=== PATIENT | female | born 1940 | race African-American/Black ===

== ENCOUNTER → 2017-01-23 | Outpatient (CLI) | payer MEDICARE, OTHER ==
[2016-12-10 15:27] VITALS: BP 148/61
[~2017-01-23] MED LIST: AMLO10TA2 PO; ASPI-482 PO; CALC500T27 PO; CARB200T PO; CHOL10003 PO; CHOL20004 PO; CHOL400C PO; CLON0.1T PO; CRESTOR40 MG PO; ENAL20TA PO; FERR-26 PO; FURO-69 PO; HYDR-2666 PO; IBAN150T PO; METO25TA4 PO; METO25TA9 PO; SPIR25TA3 PO
--- NOTE | 2017-01-23 14:50 | RAD ---
DATE: 01/23/2017 EXAM: DIGITAL SCREEN BILAT W/CAD HISTORY: Routine screening COMPARISON: 01/24/2016 This study was interpreted with the benefit of Computerized Aided Detection (CAD). FINDINGS: The breast parenchyma demonstrates heterogeneously dense breast tissue, category C which can obscure small masses. There is a linear hyperdensity identified in the left outer posterior breast which is probably a small residual wire. Benign-appearing calcific lesions identified in the left breast. There is a small asymmetry identified in the left inner lower breast. IMPRESSION: 1. There is a linear hyperdensity identified in the left outer posterior breast which is probably a small residual wire. Correlate clinically. 2. Small asymmetry identified in the left lower inner breast. Recommend spot compression views of the left inner lower breast. BI-RADS CATEGORY: 0 INCOMPLETE: NEEDS ADDITIONAL IMAGING EVALUATION AND/OR PRIOR MAMMOGRAMS FOR COMPARISON. RECOMMENDED FOLLOW-UP: ADD ADDITIONAL IMAGING PQRS compliance statement: Patient information was entered into a reminder system with a target due date immediate recall: for the next mammogram. Mammography is a sensitive method for finding small breast cancers, but it does not detect them all and is not a substitute for careful clinical examination. A negative mammogram does not negate a clinically suspicious finding and should not result in delay in biopsying a clinically suspicious abnormality. "Our facility is accredited by the [employer] Mammography Program."
== END | disposition home or self-care (01) ==
LOC: MAMMO 11:46
PROVIDERS: ATTEND Internal Medicine
DX: Z12.31 Encounter for screening mammogram for malignant neoplasm of breast (principal)
CPT/HCPCS: G0202; 77067

== ENCOUNTER → 2017-02-03 | Outpatient (CLI) | payer MEDICARE, OTHER ==
[2016-12-10 15:27] VITALS: BP 148/61
--- NOTE | 2017-02-03 10:56 | RAD ---
DATE: 02/03/2017 EXAM: DIGITAL DIAGNOSTIC LT HISTORY: Suspicious screening study COMPARISON: 01/23/2017, 01/24/2016 01/30/2015 This study was interpreted with the benefit of Computerized Aided Detection (CAD). FINDINGS: Spot compression views of the area of suspicion described on the screening mammograms in the lower inner quadrant were performed. No discrete nodule is identified. There are fibroglandular shadows in this region similar to those seen on the previous studies. The appearance on the screening study appears to have represented a summation artifact. IMPRESSION: Stable left mammograms without evidence of malignancy. BI-RADS CATEGORY: 2 BENIGN FINDING(S) RECOMMENDED FOLLOW-UP: 12M 12 MONTH FOLLOW-UP PQRS compliance statement: Patient information was entered into a reminder system with a target due date for the next mammogram. Mammography is a sensitive method for finding small breast cancers, but it does not detect them all and is not a substitute for careful clinical examination. A negative mammogram does not negate a clinically suspicious finding and should not result in delay in biopsying a clinically suspicious abnormality. "Our facility is accredited by the [employer] Mammography [employer]."
== END | disposition home or self-care (01) ==
LOC: MAMMO 10:16
PROVIDERS: ATTEND Internal Medicine
DX: R92.8 Other abnormal and inconclusive findings on diagnostic imaging of breast (principal)
CPT/HCPCS: G0206; 77065

== ENCOUNTER → 2017-02-27 | Outpatient (CLI) | payer MEDICARE, OTHER ==
[2016-12-10 15:27] VITALS: BP 148/61
[~2017-02-27] MED LIST changes: +GADOBUTROL 7.5 MMOL/7.5 ML VIAL IV ONE
--- NOTE | 2017-02-27 17:09 | KCIC ---
PROCEDURE MRI study of the abdomen with and without contrast HISTORY Follow up of pancreatic cystic lesion. TECHNIQUE Pre and post contrast enhanced MRI sequences of the abdomen were performed. A total of 5 cc of Gadavist was given intravenously. COMPARISON Study performed at [facility] dated December 09, 2016. FINDINGS Again seen are multiple renal cysts and hepatic cysts which have not changed significantly. Again seen is a cyst of the of the pancreas measuring 15 millimeters in size. This has not increased in size. The rest of the pancreas is unremarkable. The spleen is not enlarged. No adrenal mass is evident. No focal aneurysmal dilatation of the abdominal aorta is seen. Gallbladder is normal and no extrahepatic biliary ductal dilatation is seen. IMPRESSION Stable cyst of the head of the pancreas since December 09, 2016. Recommend continued MRI follow up in 6-9 months. Electronically signed by: Steven Schneider MD (Feb 27, 2017 17:07:28)
== END | disposition home or self-care (01) ==
LOC: KCIC MRI 12:00
PROVIDERS: ATTEND Internal Medicine
DX: K86.2 Cyst of pancreas (principal)
CPT/HCPCS: 74183; A9585

== ENCOUNTER → 2017-04-08 | Outpatient (CLI) | payer MEDICARE, OTHER ==
[2016-12-10 15:27] VITALS: BP 148/61
[~2017-04-08] MED LIST changes: -GADOBUTROL 7.5 MMOL/7.5 ML VIAL IV ONE
--- NOTE | 2017-04-08 14:35 | CARD ---
APPROVED REPORT EXAM: Two-dimensional and M-mode echocardiogram with Doppler and color Doppler. Other Information Quality : Good INDICATION Hypertension/HCVD Syncope 2D DIMENSIONS RVDd2.4 (2.9-3.5cm)Left Atrium(2D)2.6 (1.6-4.0cm) IVSd1.2 (0.7-1.1cm)Aortic Root(2D)2.3 (2.0-3.7cm) LVDd3.0 (3.9-5.9cm)LVOT Diameter1.8 (1.8-2.4cm) PWd1.4 (0.7-1.1cm)LVDs2.0 (2.5-4.0cm) FS (%) 27.5 %SV5.0 ml LVEF(%)55.0 (>50%) Aortic Valve AoV Peak Devin.151.6cm/sAoV VTI30.1cm AO Peak GR.9.2mmHgLVOT Peak Devin.136.9cm/s LVOT VTI 31.57cmAO Mean GR.5mmHg NATNA (VMAX)2.31kw5HPW (VTI)2.75cm2 Mitral Valve MV E Gzrtuifs66.3cm/sMV DECEL DASC578cp MV A Gfmjxzrm883.5cm/sMV [id number] E/A Ratio0.6MVA (PHT)1.79cm2 TDI E/Lateral E'9.0E/Medial E'9.3 Tricuspid Valve TR P. Wattubzj499fw/sRAP GHOQBXIY1ofVr TR Peak Gr.32ewYaNWJA46gvGu Pulmonary Vein S1 Tdabhwwa77.1cm/sD2 Yjvplggu83.2cm/s PVa [id number] LEFT VENTRICLE The left ventricle is normal size. There is mild to moderate concentric left ventricular hypertrophy. The left ventricular systolic function is normal and the ejection fraction is within normal range. T he Ejection Fraction is 55-60%. There is normal LV segmental wall motion. Septal motion suggestive of conduction defect. Transmitral Doppler flow pattern is Grade I-abnormal relaxation pattern. RIGHT VENTRICLE The right ventricle is normal size. The right ventricular systolic function is normal. ATRIA The left atrium size is normal. The right atrium size is normal. The interatrial septum is intact wit h no evidence for an atrial septal defect or patent foramen ovale as noted on 2-D or Doppler imaging. AORTIC VALVE The aortic valve is calcified but opens well. Doppler and Color Flow revealed no significant aortic r egurgitation. There is no significant aortic valvular stenosis. MITRAL VALVE The mitral valve is thickened but opens well. Mitral annular calcification is mild. There is no evide nce of mitral valve prolapse. There is no mitral valve stenosis. Doppler and Color-flow revealed mild mitral regurgitation. TRICUSPID VALVE The tricuspid valve is normal in structure and function. Doppler and Color Flow revealed trace to mil d tricuspid regurgitation. The PA pressure was estimated at 34 mmHg. There is no tricuspid valve sten osis. PULMONIC VALVE Doppler and Color Flow revealed mild pulmonic valvular regurgitation. There is no pulmonic valvular s tenosis. GREAT VESSELS The aortic root is normal in size. The ascending aorta is normal in size. The IVC is normal in size a nd collapses >50% with inspiration. PERICARDIAL EFFUSION There is no evidence of significant pericardial effusion. Critical Notification Critical Value: No <Conclusion> The left ventricular systolic function is normal and the ejection fraction is within normal range. Th e Ejection Fraction is 55-60%. There is normal LV segmental wall motion. Septal motion suggestive of conduction defect. Doppler and Color-flow revealed mild mitral regurgitation. Doppler and Color Flow revealed trace to mild tricuspid regurgitation. The PA pressure was estimated at 34 mmHg.
== END | disposition home or self-care (01) ==
LOC: ECHO 10:46
PROVIDERS: ATTEND Internal Medicine Cardiovascular Disease
DX: I11.9 Hypertensive heart disease without heart failure (principal); I37.1 Nonrheumatic pulmonary valve insufficiency; I34.0 Nonrheumatic mitral (valve) insufficiency; I07.1 Rheumatic tricuspid insufficiency
CPT/HCPCS: 93306

== ENCOUNTER → 2017-11-04 | Outpatient (CLI) | payer MEDICARE, OTHER ==
[2016-12-10 15:27] VITALS: BP 148/61
[~2017-11-04] MED LIST changes: -CALC500T27 PO; +CALC500T30 PO; -CHOL20004 PO; +CHOL200074 PO; +GADOBUTROL 7.5 MMOL/7.5 ML VIAL IV ONE; -HYDR-2666 PO; +HYDR-2758 PO; +METO-239 PO; -METO25TA9 PO
--- NOTE | 2017-11-04 15:17 | RAD ---
Abdomen MRI study with and without contrast History: Pancreatic mass. Follow-up study. Comparison: Abdomen MRI study dated February 27, [address] study of the abdomen dated May 05, 2015. Technique: Pre and postcontrast enhanced MRI sequences of the abdomen were performed. A total of 5 cc of Gadavist was given intravenously. Findings: Hepatic cysts are again evident. The spleen is not enlarged. Small bilateral renal cysts are seen. No adrenal mass is evident. No focal aneurysmal dilatation of the abdominal aorta is seen. No enlarged abdominal lymphadenopathy is seen. The gallbladder is normal and no extrahepatic biliary ductal dilatation is seen. Again seen is a cyst of the head of the pancreas which measures 13 mm in size. No new hepatic lesions are seen. IMPRESSION: No increase in size of cyst of the head of the pancreas which now measures 13 mm. No increased in size since May 05, 2015. No internal enhancement. This is a benign finding.
== END | disposition home or self-care (01) ==
LOC: MRI 13:15
PROVIDERS: ATTEND Internal Medicine
DX: K86.9 Disease of pancreas, unspecified (principal); K76.89 Other specified diseases of liver
CPT/HCPCS: 74183; A9585

== ENCOUNTER → 2018-02-05 | Outpatient (CLI) | payer MEDICARE, OTHER | END | disposition home or self-care (01) | LOC: MAMMO 12:41 | DX: Z12.31 Encounter for screening mammogram for malignant neoplasm of breast (principal); Z85.3 Personal history of malignant neoplasm of breast | CPT/HCPCS: 77063; 77067 ==

== ENCOUNTER 2018-04-07 12:07 | Inpatient (IN) | payer MEDICARE, OTHER ==
[2018-04-07 12:49] LABS: ADD MAN DIFF? NO
[2018-04-07 12:54] LABS: BASO # 0.1 x10^3/uL (0.0-0.2); BASO % 1 % (0-3); EOS # 0.3 x10^3/uL (0.0-0.7); EOS % 5 % (0-3); HEMATOCRIT 37.7 % (36.0-47.0); LYMPH # 2.4 x10^3/uL (1.0-4.8); LYMPH % 35 % (24-48); MEAN CORPUSCULAR HEMOGLOBIN 31 pg (25-35); MEAN CORPUSCULAR HGB CONC 35 g/dL (31-37); MEAN CORPUSCULAR VOLUME 91 fL (79-100); MONO # 0.4 x10^3/uL (0.0-1.1); MONO % 6 % (0-9); NEUT # 3.6 x10^3uL (1.8-7.7); NEUT % 53 % (31-73); PLATELET COUNT 297 x10^3/uL (140-400); RED BLOOD COUNT 4.15 x10^6/uL (3.50-5.40); RED CELL DISTRIBUTION WIDTH 15.1 % (11.5-14.5); WHITE BLOOD COUNT 6.8 x10^3/uL (4.0-11.0)
[2018-04-07] MEDS: LABETALOL 20 MG/4 ML DISP.SYRIN. IVP ×2 (13:01→14:55)
[2018-04-07 13:03] LABS: ANION GAP 15 (6-14); BLOOD UREA NITROGEN 11 mg/dL (7-20); CALCIUM 10.4 mg/dL (8.5-10.1); CARBON DIOXIDE 19 mmol/L (21-32); CHLORIDE 109 mmol/L (98-107); CREATININE 1.4 mg/dL (0.6-1.0); GLUCOSE 90 mg/dL (70-99); POTASSIUM 3.8 mmol/L (3.5-5.1); SODIUM 143 mmol/L (136-145)
[2018-04-07 13:04] LABS: BILIRUBIN,URINE NEGATIVE (NEG); CLARITY,URINE CLEAR; COLOR,URINE YELLOW; GLUCOSE,URINE NEGATIVE (NEG); NITRITE,URINE NEGATIVE (NEG); PROTEIN,URINE 100 mg/dL (NEG-TRACE); UROBILINOGEN,URINE 0.2 mg/dL (0.2 mg/dL)
[2018-04-07 13:08] LABS: ALBUMIN 3.9 g/dL (3.4-5.0); ALK PHOS 87 U/L (46-116); ALT (SGPT) 14 U/L (14-59); AST (SGOT) 15 U/L (15-37); DIRECT BILIRUBIN 0.1 mg/dL (0.0-0.2); LIPASE 66 U/L (73-393); TOTAL BILIRUBIN 0.7 mg/dL (0.2-1.0); TOTAL PROTEIN 8.5 g/dL (6.4-8.2)
[2018-04-07 13:11] LABS: TROPONINI < 0.017 ng/mL (0.000-0.055)
[2018-04-07 13:17] LABS: SQUAMOUS EPITHELIAL CELL,UR FEW /LPF
[2018-04-07 13:18] LABS: BACTERIA,URINE FEW /HPF (0-FEW); HYALINE CASTS, URINE FEW /HPF; RBC,URINE OCC /HPF (0-2)
[2018-04-07] MEDS: IV NORMAL SALINE 1000ML BAG 1,000 ML IV (14:49)
[2018-04-07] MEDS ORDERED: ONDANSETRON PF 4 MG/2 ML VIAL. IV (15:00)
[2018-04-07] MEDS: LISINOPRIL 20 MG TABLET PO (15:35)
[2018-04-07] MEDS: ASPIRIN ENTERIC COATED 81 MG TABLET.DR. PO (15:35)
[2018-04-07] MEDS: amLODIPine BESYLATE 10 MG TABLET PO (15:36)
[2018-04-07] MEDS: METOPROLOL SUCC 24HR ER 25 MG TAB.ER.24H. PO (15:36)
[2018-04-07] MEDS: hydrALAZINE 20 MG/ML VIAL. IVP ×2 (15:37→21:26)
[2018-04-07 18:06] LABS: TROPONINI < 0.017 ng/mL (0.000-0.055)
[2018-04-07] MEDS: ATORVASTATIN CALCIUM 20 MG TABLET PO (21:27)
[2018-04-07 23:09] LABS: TROPONINI < 0.017 ng/mL (0.000-0.055)
[2018-04-07] MEDS: ACETAMINOPHEN 500 MG TABLET PO (23:41)
[2018-04-07] MEDS ORDERED: HYDROcodone/APAP 5/325MG 1 TAB TABLET PO (23:45)
[2018-04-08] MEDS: IV NORMAL SALINE 1000ML BAG 1,000 ML IV ×2 (00:49→10:49)
[2018-04-08 04:39] LABS: ADD MAN DIFF? NO
[2018-04-08 04:46] LABS: BASO % 1 % (0-3); EOS # 0.3 x10^3/uL (0.0-0.7); EOS % 4 % (0-3); LYMPH # 1.5 x10^3/uL (1.0-4.8); LYMPH % 25 % (24-48); MEAN CORPUSCULAR HEMOGLOBIN 31 pg (25-35); MEAN CORPUSCULAR HGB CONC 35 g/dL (31-37); MEAN CORPUSCULAR VOLUME 91 fL (79-100); MONO # 0.4 x10^3/uL (0.0-1.1); MONO % 7 % (0-9); NEUT # 3.9 x10^3uL (1.8-7.7); NEUT % 63 % (31-73); PLATELET COUNT 274 x10^3/uL (140-400); RED BLOOD COUNT 3.52 x10^6/uL (3.50-5.40); RED CELL DISTRIBUTION WIDTH 14.7 % (11.5-14.5); WHITE BLOOD COUNT 6.2 x10^3/uL (4.0-11.0)
[2018-04-08 05:33] LABS: ANION GAP 13 (6-14); CALCIUM 9.1 mg/dL (8.5-10.1); CARBON DIOXIDE 18 mmol/L (21-32); CHLORIDE 111 mmol/L (98-107); CHOLESTEROL 142 mg/dL (0-200); CREATININE 1.4 mg/dL (0.6-1.0); GLUCOSE 106 mg/dL (70-99); HDLC 53 mg/dL (40-60); LDLC 77 mg/dL (0-100); NON-HDL CHOLESTEROL 89 mg/dL (0-129); POTASSIUM 3.3 mmol/L (3.5-5.1); SODIUM 142 mmol/L (136-145); TRIGLYCERIDES 59 mg/dL (0-150); VLDLC 12 mg/dL (0-40)
[2018-04-08 05:44] LABS: BLOOD UREA NITROGEN 14 mg/dL (7-20)
[2018-04-08 05:47] LABS: THYROID STIM HORMONE (TSH) 3.063 uIU/mL (0.358-3.74)
[2018-04-08 05:50] LABS: CHOLESTEROL/HDL RATIO 2.7
[2018-04-08] MEDS: REGADENOSON 0.4 MG/5 ML DISP.SYRIN. IV (09:30)
[2018-04-08] MEDS: amLODIPine BESYLATE 10 MG TABLET PO (10:16)
[2018-04-08] MEDS: ASPIRIN ENTERIC COATED 81 MG TABLET.DR. PO (10:16)
[2018-04-08] MEDS: POTASSIUM CHLORIDE 20 MEQ TABLET.ER. PO (10:17)
[2018-04-08] MEDS: METOPROLOL SUCC 24HR ER 25 MG TAB.ER.24H. PO (10:17)
[2018-04-08] MEDS: LISINOPRIL 20 MG TABLET PO (10:17)
[2018-04-08] MEDS ORDERED: ATORVASTATIN CALCIUM 40 MG TABLET. PO (21:00)
== END 2018-04-08 16:00 | disposition home or self-care (01) | DRG 684 ==
LOC: ER 12:07 → 2 NORTH 13:50
DX: I12.9 Hypertensive chronic kidney disease with stage 1 through stage 4 chronic kidney disease, or unspecified chronic kidney disease (principal); N18.3 Chronic kidney disease, stage 3 (moderate); E78.5 Hyperlipidemia, unspecified; R07.89 Other chest pain; Z82.49 Family history of ischemic heart disease and other diseases of the circulatory system; M81.0 Age-related osteoporosis without current pathological fracture; Z80.3 Family history of malignant neoplasm of breast; Z90.710 Acquired absence of both cervix and uterus; Z85.3 Personal history of malignant neoplasm of breast; Z91.19 Patient's noncompliance with other medical treatment and regimen
CPT/HCPCS: 36415; 71046; 78452; 80048; 80061; 80076; 81001; 83690; 84443; 84484; 85025; 87086; 93005; 93017; 96374; 96375; 96376; 99285; 99285-25; A9500; J0360; J2785; J3490

== ENCOUNTER → 2018-04-07 | Outpatient (CLI) | payer MEDICARE, OTHER ==
[~2018-04-07] MED LIST changes: -AMLO10TA2 PO; -ASPI-482 PO; -CALC500T30 PO; -CARB200T PO; -CHOL10003 PO; -CHOL200074 PO; -CHOL400C PO; -CLON0.1T PO; -CRESTOR40 MG PO; -ENAL20TA PO; -FERR-26 PO; -FURO-69 PO; -GADOBUTROL 7.5 MMOL/7.5 ML VIAL IV ONE; -HYDR-2758 PO; -IBAN150T PO; -METO-239 PO; -METO25TA4 PO; +REGADENOSON 0.4 MG/5 ML DISP.SYRIN. IV; -SPIR25TA3 PO
== END | disposition home or self-care (01) ==
LOC: ECHO 08:00
DX: I31.3 Pericardial effusion (noninflammatory) (principal); I10 Essential (primary) hypertension
CPT/HCPCS: 93306; 96374

== ENCOUNTER 2018-11-13 06:47 | Outpatient (CLI) | payer MEDICARE, OTHER ==
[2018-11-13] VITALS (12 sets, daily range): BP systolic 133–158; BP diastolic 64–75
[~2018-11-13] VITALS: Ht 156.2 cm; Wt 49.9 kg
[~2018-11-13 06:47] MED LIST changes: +AMLO10TA6 PO; +ASPI-482 PO; +CALC500T30 PO; +CARB200T PO; +CHOL10003 PO; +CHOL200074 PO; +CHOL400C PO; +CLON0.1T PO; +CRESTOR40 MG PO; +ENAL20TA PO; +FERR325T14 PO; +FURO-69 PO; +HYDR-2761 PO; +IBAN150T PO; +METO-239 PO; +METO25TA4 PO; -REGADENOSON 0.4 MG/5 ML DISP.SYRIN. IV; +SPIR25TA5 PO
[2018-11-13] MEDS ORDERED: LIDOCAINE 1% PF 2 ML VIAL. ONE (07:14)
[2018-11-13] MEDS ORDERED: IODIXANOL 320 MG/ML 100 ML VIAL. ONE (07:14)
[2018-11-13 07:19] LABS: HEMATOCRIT 35.6 % (36.0-47.0); HEMOGLOBIN 12.1 g/dL (12.0-15.5); RED BLOOD COUNT 3.94 x10^6/uL (3.50-5.40); RED CELL DISTRIBUTION WIDTH 14.7 % (11.5-14.5); WHITE BLOOD COUNT 9.9 x10^3/uL (4.0-11.0)
[2018-11-13 07:23] LABS: CALCIUM 9.5 mg/dL (8.5-10.1); CREATININE 1.6 mg/dL (0.6-1.0); GFR 37.6; POTASSIUM 3.6 mmol/L (3.5-5.1)
[2018-11-13 07:28] LABS: PROTHROMBIN TIME PATIENT 13.2 SEC (11.7-14.0)
[2018-11-13] MEDS ORDERED: HEPARIN for IV BOLUS 10,000 UNIT/10 ML VIAL. ONE (08:16)
[2018-11-13] MEDS ORDERED: VERAPAMIL 5 MG/2 ML VIAL. ONE (08:16)
[2018-11-13] MEDS ORDERED: NITROGLYCERIN 200 MCG/2 ML SYRINGE FOR CATH/VASC LAB. ONE (08:16)
[2018-11-13] MEDS ORDERED: fentaNYL PF VIAL 100 MCG/2 ML VIAL ONE (08:16)
[2018-11-13] MEDS ORDERED: MIDAZOLAM HCL/PF 5 MG/5 ML VIAL. ONE (08:16)
[2018-11-13] MEDS ORDERED: NITROGLYCERIN 200 MCG/2 ML SYRINGE FOR CATH/VASC LAB. IART ONE (08:30)
[2018-11-13] MEDS ORDERED: VERAPAMIL 5 MG/2 ML VIAL. IART ONE (08:30)
[2018-11-13] MEDS ORDERED: LIDOCAINE 1% PF 2 ML VIAL. INJ ONE (08:30)
[2018-11-13] MEDS ORDERED: HEPARIN for IV BOLUS 10,000 UNIT/10 ML VIAL. IART ONE (08:30)
[2018-11-13] MEDS ORDERED: MIDAZOLAM HCL/PF 5 MG/5 ML VIAL. IV ONE (08:30)
[2018-11-13] MEDS ORDERED: fentaNYL PF VIAL 100 MCG/2 ML VIAL IV ONE (08:30)
[2018-11-13] MEDS ORDERED: IODIXANOL 320 MG/ML 100 ML VIAL. IART ONE (08:30)
[2018-11-13] MEDS ORDERED: IV NORMAL SALINE 1000ML BAG 1,000 ML IV SCH (08:45)
--- NOTE | 2018-11-13 09:12 | CARD ---
MR#: [id number] Date of Study: 11/13/2018 Ordering Physician: VALDO RAMACHANDRAN Referring Physician: VALDO RAMACHANDRAN Tech: Ninfa Jose RTR APPROVED REPORT Technologist: Ninfa Jose RTR Nurse: Samantha Hay R.N. Procedure(s) performed: Left heart catheterization, selective coronary angiography and left ventricul ography via right transradial approach Moderate Sedation time: 34 minutes INDICATION The indication(s) include : Refractory chest pain concerning for unstable angina. PROCEDURE NARRATIVE After explaining the risks, benefits and alternative options, informed consent was obtained from jake ent. Patient was brought to the cardiac [facility] and right wrist was prepped and draped in the usual fashion after confirming a positive modified Humberto's test. Arterial access was obtained in the righ t radial artery and a 6 [place]amese sheath was inserted. 6 [place]amese Fred catheter was used to perform rebeca ective angiography of the left and right coronary arteries. 6 [place]amese pigtail catheter was used to pe rform left ventriculography. Patient tolerated the procedure well. Hemostasis was achieved using TR band. There were no immediate complications. The following findings were noted. FINDINGS 1. Hemodynamics: Left ventricular end-diastolic pressure of 13 mmHg. No pullback gradient across th e aortic valve. 2. Left ventriculography: Normal left ventricle systolic function with ejection fraction estimated at 60%. No significant mitral regurgitation seen. 3. Coronary angiography: a. The left main coronary artery arose from the left sinus of Valsalva, gave rise to the left anteri or descending and left circumflex arteries and did not show any significant stenosis. b. The left anterior descending artery did not show any significant stenosis. c. The left circumflex artery was a large and dominant vessel that did not show any significant sten osis. d. The right coronary artery was a small and non-dominant vessel arising from the right sinus of Jami robert that did not show any significant stenosis. Conclusion 1. No significant coronary artery disease 2. Normal left ventricle systolic function with ejection fraction estimated at 60% Recommendations Chest pain noncardiac and most probably gastroesophageal reflux disease Signed by : Valdo Pasnoori, Electronically Approved : 11/13/2018 09:10:51
--- NOTE | 2018-11-13 09:14 | PDOC ---
MODERATE SEDATION ASSESSMENT RISKS/ALTERNATIVES Risks/Alternatives Risks and alternatives of this type of sedation and procedure discussed with: RISK/ALTERNATIVES: Patient H & P ON CHART H & P H & P on chart and reviewed for co-morbid conditions and appropriate labs. H&P ON CHART: Yes STATUS PREG STATUS ASSESSED: N/A MEDS/ALLERGIES REVIEWED Meds/Allergies Reviewed Medications and Allergies including time and route of recently administered narcotics and sedatives. MEDS/ALLERGIES REVIEWED: Yes ASA RATING ASA RATING: II AIRWAY ASSESSMENT Airway Assessment Airway patency, oral function limitations, presence of caps, crowns, dentures, partials, and ability to extend neck assessed. AIRWAY ASSESSMENT: Yes MALLAMPATI SCORE MALLAMPATI SCORE: II PRE-SEDATION ASSESSMENT PRE-SEDATION ASSESSMENT: Yes VALDO RAMACHANDRAN MD Nov 13, 2018 09:14
[2018-11-13] MEDS ORDERED: IV 1/2 NORMAL SALINE 1,000 ML IV SCH (09:23)
[2018-11-13] MEDS ORDERED: NITROGLYCERIN SUBLINGUAL 0.4 MG BOTTLE OF 25. SL PRN (09:30)
--- NOTE | 2018-11-13 11:00 | NUR ---
Patient alert and forgetful. Patient and two daughters educated on radial site care, moderate sedation, signs and symptoms of infection and post cardiac cath care; all verbalized understanding. Daughters aware patient will need assistance for the next 24 hours due to right radial site and not able to use right hand, patients two daughters stated they will be assisting patient for the next 24 hours. Patient discharged home with daughters, taken out to private vehicle via wheelchair. Vitals stable and armboard in place.
== END 2018-11-13 11:00 | disposition home or self-care (01) ==
LOC: CCL 06:47
PROVIDERS: ATTEND Internal Medicine Cardiovascular Disease
DX: I20.0 Unstable angina (principal); Z88.0 Allergy status to penicillin; Z88.5 Allergy status to narcotic agent
CPT/HCPCS: 36415; 80048; 85027; 85610; 93458; 99152; 99153; C1769; C1892; J1644; J2250; J3010; J3490; J7030; Q9967

== ENCOUNTER → 2019-02-02 | Outpatient (CLI) | payer MEDICARE, OTHER ==
[2018-11-13 10:45] VITALS: BP 145/69
[~2019-02-02] MED LIST changes: -AMLO10TA6 PO; +AMLO10TA8 PO; -IBAN150T PO; +IBAN150T15 PO
--- NOTE | 2019-02-02 12:46 | RAD ---
DATE: 02/02/2019 EXAM: MAMMO JAY SCREENING BILATERAL HISTORY: Left breast cancer COMPARISON: 02/05/2018 This study was interpreted with the benefit of Computerized Aided Detection (CAD). Breast Density: HETERO The breast parenchyma is heterogenously dense, which could reduce sensitivity of mammography. Breast parenchyma level C. FINDINGS: 2-D and 3-D tomosynthesis imaging was performed in CC and MLO projections. The breasts are asymmetric related to the history of previous left lumpectomy. No new or enlarging breast densities are seen. Benign type calcifications are present. No suspicious microcalcifications have developed. IMPRESSION: Stable mammograms without evidence of malignancy. BI-RADS CATEGORY: 2 BENIGN FINDING(S) RECOMMENDED FOLLOW-UP: 12M 12 MONTH FOLLOW-UP PQRS compliance statement: Patient information was entered into a reminder system with a target due date for the next mammogram. Mammography is a sensitive method for finding small breast cancers, but it does not detect them all and is not a substitute for careful clinical examination. A negative mammogram does not negate a clinically suspicious finding and should not result in delay in biopsying a clinically suspicious abnormality. "Our facility is accredited by the [employer] Mammography Program."
== END | disposition home or self-care (01) ==
LOC: MAMMO 10:28
PROVIDERS: ATTEND Internal Medicine
DX: Z12.31 Encounter for screening mammogram for malignant neoplasm of breast (principal); R92.8 Other abnormal and inconclusive findings on diagnostic imaging of breast; Z85.3 Personal history of malignant neoplasm of breast
CPT/HCPCS: 77063; 77067

== ENCOUNTER 2019-04-12 13:11 | Emergency (ER) | payer MEDICARE, OTHER ==
[~2019-04-12] VITALS: Ht 154.9 cm; Wt 49.4 kg
--- NOTE | 2019-04-12 13:49 | PHYS DOC ---
Past Medical History Past Medical History: Cancer, High Cholesterol, Hypertension Additional Past Medical Histor: LEFT BREAST CA Past Surgical History: Appendectomy, Hysterectomy, Tonsillectomy Alcohol Use: Rarely Drug Use: None Adult General Chief Complaint Chief Complaint: head injury HPI HPI Patient is a 78 year old female who routine by EMS because of head injury and dizziness. Patient states she hit her head against the side of her car while getting out of the car without loss of consciousness or fall. Patient complaining of headache and neck pain and dizziness 50 minutes after the injury and rated her pain 7/10. Patient denies fever and chills, focal neuro deficit, blurred vision, chest pain, shortness of breath, abdominal pain. Review of Systems Review of Systems Constitutional: Denies fever or chills [] Eyes: Denies change in visual acuity, redness, or eye pain [] HENT: Denies nasal congestion or sore throat [] Respiratory: Denies cough or shortness of breath [] Cardiovascular: No additional information not addressed in HPI [] GI: Denies abdominal pain, nausea, vomiting, bloody stools or diarrhea [] : Denies dysuria or hematuria [] Musculoskeletal: Denies back pain or joint pain, reports neck pain [] Integument: Denies rash or skin lesions [] Neurologic: Reports headache, denies focal weakness or sensory changes [] Endocrine: Denies polyuria or polydipsia [] All other systems were reviewed and found to be within normal limits, except as documented in this note. Current Medications Current Medications Current Medications Medications (Trade) Dose Ordered Sig/Seth Start Time Stop Time Status Last Admin Dose Admin Clonidine HCl (Catapres) 0.2 mg 1X ONCE 04/12/19 15:30 04/12/19 15:31 DC 04/12/19 15:29 0.2 MG Allergies Allergies Allergies Coded Allergies Type Severity Reaction Last Updated Verified codeine Allergy Intermediate SEE COMMENT 04/07/18 Yes Penicillins Adverse Reaction Mild N/V 04/07/18 Yes Physical Exam Physical Exam Constitutional: Well developed, well nourished, mild distress, non-toxic appearance. [] HENT: Normocephalic, atraumatic,oropharynx moist.] Eyes: PERRLA, EOMI, conjunctiva normal, no discharge. [] Neck: Immobilized by c-collar by EMS Cardiovascular:Heart rate regular rhythm, no murmur [] Lungs & Thorax: Bilateral breath sounds clear to auscultation [] Abdomen: Bowel sounds normal, soft, no tenderness, no masses, no pulsatile masses. [] Skin: Warm, dry, no erythema, no rash. [] Back: No tenderness, no CVA tenderness. [] Extremities: No tenderness, no cyanosis, no clubbing, ROM intact, no edema. [] Neurologic: Alert and oriented X 3, normal motor function, normal sensory function, no focal deficits noted. [] Psychologic: Affect normal, judgement normal, mood normal. [] Current Patient Data Vital Signs Vital Signs Date Time Temp Pulse Resp B/P (MAP) Pulse Ox O2 Delivery O2 Flow Rate FiO2 04/12/19 15:55 177/76 (109) 04/12/19 15:53 60 100 Room Air 04/12/19 13:17 98.0 20 98.0 EKG EKG [] Radiology/Procedures Radiology/Procedures [] Course & Med Decision Making Course & Med Decision Making Pertinent Imaging studies reviewed. (See chart for details) Evaluation of patient in ER showed 78-year-old female patient brought in by EMS because of a mild head injury and complaining of head and neck pain. Patient had unremarkable physical exam and CT head and neck. Patient had blood pressure more than 200 with history of hypertension and taking 3 antihypertensive medication. Blood pressure gradually improved to 177/79 after Clonidine. Patient was advised to continue her home medications and follow up with her primary care physician regarding elevation of blood pressure. Dragon Disclaimer Dragon Disclaimer This electronic medical record was generated, in whole or in part, using a voice recognition dictation system. Departure Departure Impression: Primary Impression: Head injury Additional Impressions: Hypertensive emergency Acute cervical myofascial strain Disposition: HOME, SELF-CARE (at 1558) Condition: IMPROVED Patient Instructions: Cervical Sprain, Head Injury, Adult, Managing Your High Blood Pressure Additional Instructions: Apply ice on the affected area Follow-up with your primary care physician in 3-5 days Return to ER if not getting better May take [id number] Tylenol as needed for pain Problem Qualifiers Primary Impression: Head injury Encounter type: initial encounter Qualified Codes: S09.90XA - Unspecified injury of head, initial encounter Additional Impressions: Acute cervical myofascial strain Encounter type: initial encounter Qualified Codes: S16.1XXA - Strain of muscle, fascia and tendon at neck level, initial encounter ATTILA DUKES MD Apr 12, 2019 13:49
--- NOTE | 2019-04-12 14:36 | RAD ---
CT scan of the head without contrast 04/12/2019 Clinical History: Head injury. Technique: Unenhanced, contiguous, 5 mm axial sections were obtained through the head. One or more of the following individualized dose reduction techniques were utilized for this study: 1. Automated exposure control. 2. Adjustment of the mA and/or kV according to patient size. 3. Use of iterative reconstruction technique. Findings: Comparison study is dated 11/22/2015. There is generalized parenchymal atrophy. Areas of decreased attenuation are seen within the periventricular and subcortical white matter of both cerebral hemispheres consistent with areas of small vessel ischemic disease. No acute parenchymal abnormality is seen. No extra-axial fluid collection is noted. No skull fracture is seen. Impression: No acute intracranial abnormality is seen. CT scan of the cervical spine without contrast 04/12/2019 Clinical history: Neck injury. Technique: Unenhanced, contiguous, 0.625 mm axial sections were obtained through the cervical spine. Axial, coronal and sagittal reconstructed images were obtained. One or more of the following individualized dose reduction techniques were utilized for this study: 1. Automated exposure control. 2. Adjustment of the mA and/or kV according to patient size. 3. Use of iterative reconstruction technique. Findings: Sagittal coronal reconstructed images demonstrate minimal lateral curvature of the cervical spine, convex to the left. There is reversal of the normal cervical lordosis. Degenerative changes consisting of disc space narrowing, vertebral endplate sclerosis and mild to moderate anterior and posterior vertebral body osteophyte formation are seen involving the C4-5 and C5-6 disc spaces. No fracture or subluxation cervical vertebrae seen. Degenerative changes are seen involving the uncovertebral and facet joints throughout the cervical disc spaces. Mild to moderate atherosclerotic calcification is seen in the region of the carotid bifurcations. Impression: No fracture or subluxation of the cervical vertebra is identified. Electronically signed by: Aftab Nicole MD (04/12/2019 2:33 PM) [id number]
[2019-04-12] MEDS ORDERED: cloNIDine HCL 0.1 MG TABLET PO ONE (15:30)
[2019-04-12 15:55] VITALS: BP 177/76
== END 2019-04-12 16:21 | disposition home or self-care (01) ==
LOC: ER 13:11
DX: S16.1XXA Strain of muscle, fascia and tendon at neck level, initial encounter (principal); S09.90XA Unspecified injury of head, initial encounter; I16.0 Hypertensive urgency; R42 Dizziness and giddiness; E78.00 Pure hypercholesterolemia, unspecified; I10 Essential (primary) hypertension; Z88.0 Allergy status to penicillin; Z88.5 Allergy status to narcotic agent; W22.8XXA Striking against or struck by other objects, initial encounter; Y93.89 Activity, other specified; Y92.89 Other specified places as the place of occurrence of the external cause; Y99.8 Other external cause status
CPT/HCPCS: 70450; 72125; 99284-25

== ENCOUNTER → 2020-03-14 | Outpatient (CLI) | payer MEDICARE, OTHER ==
--- NOTE | 2020-03-15 16:48 | RAD ---
History: Routine screening. Technique: Bilateral digital mammographic routine views were obtained with 2-D and 3-D technique including CAD - computer aided detection. Comparison: 01/23/2017, 02/05/2018 and 02/02/2019.. Findings: Breast Tissue Density B :The breast tissue is composed of mixed fatty and fibroglandular tissue. There are no suspicious masses, microcalcifications or areas of architectural distortion. Impression: Negative mammogram. BI-RADS Category 1: Negative. Normal interval followup. A mammogram does not have 100% sensitivity and therefore a negative imaging study should not delay further work up of a suspicious abnormality. The patient will receive a letter with the results in the mail. Patient information is entered into the reminder system with a target due date for the next screening mammogram. The patient will receive a reminder. "Our facility is accredited by the [employer] Mammography Program." BI-RADS 1 -- negative findings (within normal)
== END | disposition home or self-care (01) ==
LOC: MAMMO 10:12
PROVIDERS: ATTEND Internal Medicine
DX: Z12.31 Encounter for screening mammogram for malignant neoplasm of breast (principal)
CPT/HCPCS: 77063; 77067

== ENCOUNTER → 2020-03-29 | Outpatient (CLI) | payer MEDICARE, OTHER ==
--- NOTE | 2020-03-29 15:23 | CARD ---
MR#: [id number] Date of Study: 03/29/2020 Ordering Physician: VALDO RAMACHANDRAN, Referring Physician: VALDO RAMACHANDRAN Tech: Candy Charles RDCS APPROVED REPORT EXAM: Two-dimensional and M-mode echocardiogram with Doppler and color Doppler. Other Information Quality : Good INDICATION Chest Pain 2D DIMENSIONS RVDd2.7 (2.9-3.5cm)Left Atrium(2D)2.2 (1.6-4.0cm) IVSd1.5 (0.7-1.1cm)Aortic Root(2D)1.9 (2.0-3.7cm) LVDd2.5 (3.9-5.9cm)LVOT Diameter1.8 (1.8-2.4cm) PWd1.0 (0.7-1.1cm)LVDs1.3 (2.5-4.0cm) FS (%) 30.0 %SV17.5 ml LVEF(%)60.0 (>50%) Aortic Valve AoV Peak Devin.193.1cm/sAoV VTI39.0cm AO Peak GR.14.9mmHgLVOT Peak Devin.193.4cm/s AO Mean GR.9mmHgAVA (VMAX)2.45cm2 NATAN (VTI)2.40cm2 Mitral Valve MV E Wqdavjlq04.8cm/sMV DECEL SWHX019hi MV A Rgfepvri928.8cm/sE/A Ratio0.7 Tricuspid Valve TR P. Gusruiby493ro/sRAP BSYPXSEB0dgMh TR Peak Gr.73jdBwAEJO33maRw Pulmonary Vein S1 Eiwhvbog21.4cm/sD2 Vbdxcxsu91.8cm/s LEFT VENTRICLE The left ventricle is normal size. There is mild to moderate concentric left ventricular hypertrophy. The left ventricular systolic function is normal. The Ejection Fraction is 65%. There is normal LV s egmental wall motion. Transmitral Doppler flow pattern is Grade I-abnormal relaxation pattern. RIGHT VENTRICLE The right ventricle is normal size. The right ventricular systolic function is normal. ATRIA The left atrium size is normal. The right atrium size is normal. The interatrial septum is intact wit h no evidence for an atrial septal defect or patent foramen ovale as noted on 2-D or Doppler imaging. AORTIC VALVE The aortic valve is mildly thickened but opens well. Doppler and Color Flow revealed no significant a ortic regurgitation. There is no significant aortic valvular stenosis. MITRAL VALVE The mitral valve is calcified but opens well. Mitral annular calcification is mild. There is no evide nce of mitral valve prolapse. There is no mitral valve stenosis. Doppler and Color-flow revealed mild mitral regurgitation. TRICUSPID VALVE The tricuspid valve is normal in structure and function. Doppler and Color Flow revealed mild tricusp id regurgitation. There is mild pulmonary hypertension. The PA pressure was estimated at 38 mmHg. The re is no tricuspid valve stenosis. PULMONIC VALVE The pulmonary valve is normal in structure and function. Doppler and Color Flow revealed mild pulmoni c valvular regurgitation. There is no pulmonic valvular stenosis. GREAT VESSELS The aortic root is normal in size. The ascending aorta is normal in size. The IVC is normal in size a nd collapses >50% with inspiration. PERICARDIAL EFFUSION There is no evidence of significant pericardial effusion. Critical Notification Critical Value: No <Conclusion> The left ventricular systolic function is normal. The Ejection Fraction is 65%. There is normal LV segmental wall motion. Transmitral Doppler flow pattern is Grade I-abnormal relaxation pattern. Mild mitral regurgitation. Mild tricuspid regurgitation. The PA pressure was estimated at 38 mmHg. There is no evidence of significant pericardial effusion. Signed by : Valdo Ramachandran, Electronically Approved : 03/29/2020 15:22:17
== END | disposition home or self-care (01) ==
LOC: ECHO 14:05
PROVIDERS: ATTEND Internal Medicine Cardiovascular Disease
DX: I08.8 Other rheumatic multiple valve diseases (principal); I10 Essential (primary) hypertension
CPT/HCPCS: 93306

== ENCOUNTER 2021-03-21 13:09 | Emergency (ER) | payer MEDICARE, OTHER ==
[~2021-03-21] VITALS: Ht 157.5 cm; Wt 50.0 kg
[2021-03-21 13:59] LABS: BASO % 0 % (0-3); EOS # 0.3 x10^3/uL (0.0-0.7); EOS % 4 % (0-3); HEMATOCRIT 36.6 % (36.0-47.0); HEMOGLOBIN 12.5 g/dL (12.0-15.5); LYMPH # 1.3 x10^3/uL (1.0-4.8); LYMPH % 23 % (24-48); MEAN CORPUSCULAR HEMOGLOBIN 31 pg (25-35); MEAN CORPUSCULAR HGB CONC 34 g/dL (31-37); MEAN CORPUSCULAR VOLUME 90 fL (79-100); MONO # 0.4 x10^3/uL (0.0-1.1); MONO % 8 % (0-9); NEUT # 3.8 x10^3/uL (1.8-7.7); NEUT % 65 % (31-73); PLATELET COUNT 298 x10^3/uL (140-400); RED BLOOD COUNT 4.09 x10^6/uL (3.50-5.40); RED CELL DISTRIBUTION WIDTH 14.8 % (11.5-14.5); WHITE BLOOD COUNT 5.8 x10^3/uL (4.0-11.0)
[2021-03-21] MEDS ORDERED: IV NORMAL SALINE 500ML BAG 500 ML IV ONE (14:00)
[2021-03-21 14:12] LABS: CALCIUM 9.1 mg/dL (8.5-10.1); CREATININE 1.6 mg/dL (0.6-1.0); GFR 37.4; POTASSIUM 3.7 mmol/L (3.5-5.1)
--- NOTE | 2021-03-21 14:12 | EKG ---
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
[2021-03-21 14:17] LABS: ALBUMIN 3.4 g/dL (3.4-5.0); ALBUMIN/GLOBULIN RATIO 0.9 (1.0-1.7); MAGNESIUM 2.5 mg/dL (1.8-2.4); TOTAL BILIRUBIN 0.4 mg/dL (0.2-1.0); TOTAL PROTEIN 7.2 g/dL (6.4-8.2)
[2021-03-21 15:06] LABS: BILIRUBIN,URINE NEGATIVE (NEG); CLARITY,URINE CLEAR; COLOR,URINE YELLOW; NITRITE,URINE NEGATIVE (NEG); PH,URINE 6.5 (<5.0-8.0); PROTEIN,URINE >=300 mg/dL (NEG-TRACE); UROBILINOGEN,URINE 0.2 mg/dL (0.2 mg/dL)
[2021-03-21 15:20] LABS: HYALINE CASTS, URINE MODERATE /HPF
[2021-03-21 15:22] LABS: BACTERIA,URINE FEW /HPF (0-FEW); RBC,URINE RARE /HPF (0-2)
--- NOTE | 2021-03-21 17:28 | PHYS DOC ---
Past Medical History Past Medical History: Cancer, High Cholesterol, Hypertension, Other Additional Past Medical Histor: LEFT BREAST CA Past Surgical History: Appendectomy, Hysterectomy, Tonsillectomy Smoking Status: Never Smoker Alcohol Use: Rarely Drug Use: None General Adult EDM: Chief Complaint: FATIGUE HPI: HPI: Patient is a 80 year old female who was brought here for evaluation of generalized weakness and dizziness. Patient had a mammogram done today at outpatient radiology department. Patient ate breakfast but she did not eat lunch. After the mammogram she feels weak and dizzy so she went home. When she got home she feels shaky and nauseous so her daughter called EMS to take her here for evaluation.. Patient denies any chest pain, no abdominal pain, no trouble breathing. Patient still has not had any lunch yet. Her blood sugar was 112. Review of Systems: Review of Systems: Constitutional: Denies fever or chills. [] Eyes: Denies change in visual acuity. [] HENT: Denies nasal congestion or sore throat. [] Respiratory: Denies cough or shortness of breath. [] Cardiovascular: Denies chest pain or edema. [] GI: Denies abdominal pain, nausea, vomiting, bloody stools or diarrhea. [] : Denies dysuria. [] Musculoskeletal: Denies back pain or joint pain. [] Integument: Denies rash. [] Neurologic: Denies headache, focal weakness or sensory changes. [] Endocrine: Denies polyuria or polydipsia. Positive for general weakness Lymphatic: Denies swollen glands. [] Psychiatric: Denies depression or anxiety. [] Heart Score: C/O Chest Pain: N/A Risk Factors: Risk Factors: DM, Current or recent (<one month) smoker, HTN, HLP, family history of CAD, obesity. Risk Scores: Score 0 - 3: 2.5% MACE over next 6 weeks - Discharge Home Score 4 - 6: 20.3% MACE over next 6 weeks - Admit for Clinical Observation Score 7 - 10: 72.7% MACE over next 6 weeks - Early Invasive Strategies Current Medications: Current Medications Medications (Trade) Dose Ordered Sig/Seth Start Time Stop Time Status Last Admin Dose Admin Sodium Chloride 500 ml @ 500 mls/hr 1X ONCE 03/21/21 14:00 03/21/21 14:59 DC 03/21/21 13:58 500 MLS/HR Allergies: Allergies: Allergies Coded Allergies Type Severity Reaction Last Updated Verified codeine Allergy Intermediate SEE COMMENT 04/07/18 Yes Penicillins Adverse Reaction Mild N/V 04/07/18 Yes Physical Exam: PE: Constitutional: Well developed, well nourished, no acute distress, non-toxic appearance. [] HENT: Normocephalic, atraumatic, bilateral external ears normal, oropharynx moist, no oral exudates, nose normal. [] Eyes: PERRLA, EOMI, conjunctiva normal, no discharge. [] Neck: Normal range of motion, no tenderness, supple, no stridor. [] Cardiovascular:Heart rate regular rhythm, no murmur [] Lungs & Thorax: Bilateral breath sounds clear to auscultation [] Abdomen: Bowel sounds normal, soft, no tenderness, no masses, no pulsatile masses. [] Skin: Warm, dry, no erythema, no rash. [] Back: No tenderness, no CVA tenderness. [] Extremities: No tenderness, no cyanosis, no clubbing, ROM intact, no edema. [] Neurologic: Alert and oriented X 3, normal motor function, normal sensory function, no focal deficits noted. [] Psychologic: Affect normal, judgement normal, mood normal. [] Current Patient Data: Labs: Laboratory Tests Test 03/21/21 13:32 03/21/21 14:54 White Blood Count 5.8 x10^3/uL (4.0-11.0) Red Blood Count 4.09 x10^6/uL (3.50-5.40) Hemoglobin 12.5 g/dL (12.0-15.5) Hematocrit 36.6 % (36.0-47.0) Mean Corpuscular Volume 90 fL (79-100) Mean Corpuscular Hemoglobin 31 pg (25-35) Mean Corpuscular Hemoglobin Concent 34 g/dL (31-37) Red Cell Distribution Width 14.8 % (11.5-14.5) H Platelet Count 298 x10^3/uL (140-400) Neutrophils (%) (Auto) 65 % (31-73) Lymphocytes (%) (Auto) 23 % (24-48) L Monocytes (%) (Auto) 8 % (0-9) Eosinophils (%) (Auto) 4 % (0-3) H Basophils (%) (Auto) 0 % (0-3) Neutrophils # (Auto) 3.8 x10^3/uL (1.8-7.7) Lymphocytes # (Auto) 1.3 x10^3/uL (1.0-4.8) Monocytes # (Auto) 0.4 x10^3/uL (0.0-1.1) Eosinophils # (Auto) 0.3 x10^3/uL (0.0-0.7) Basophils # (Auto) 0.0 x10^3/uL (0.0-0.2) Sodium Level 147 mmol/L (136-145) H Potassium Level 3.7 mmol/L (3.5-5.1) Chloride Level 111 mmol/L (98-107) H Carbon Dioxide Level 22 mmol/L (21-32) Anion Gap 14 (6-14) Blood Urea Nitrogen 17 mg/dL (7-20) Creatinine 1.6 mg/dL (0.6-1.0) H Estimated GFR (Cockcroft-Gault) 37.4 BUN/Creatinine Ratio 11 (6-20) Glucose Level 87 mg/dL (70-99) Calcium Level 9.1 mg/dL (8.5-10.1) Magnesium Level 2.5 mg/dL (1.8-2.4) H Total Bilirubin 0.4 mg/dL (0.2-1.0) Aspartate Amino Transferase (AST) 17 U/L (15-37) Alanine Aminotransferase (ALT) 19 U/L (14-59) Alkaline Phosphatase 65 U/L (46-116) Troponin I Quantitative < 0.017 ng/mL (0.000-0.055) PC-Sah-G-Type Natriuretic Peptide 84 pg/mL (0-449) Total Protein 7.2 g/dL (6.4-8.2) Albumin 3.4 g/dL (3.4-5.0) Albumin/Globulin Ratio 0.9 (1.0-1.7) L Urine Collection Type Void Urine Color Yellow Urine Clarity Clear Urine pH 6.5 (<5.0-8.0) Urine Specific [place] 1.010 (1.000-1.030) Urine Protein >=300 mg/dL (NEG-TRACE) Urine Glucose (UA) Negative mg/dL (NEG) Urine Ketones (Stick) Negative mg/dL (NEG) Urine Blood Trace (NEG) Urine Nitrite Negative (NEG) Urine Bilirubin Negative (NEG) Urine Urobilinogen Dipstick 0.2 mg/dL (0.2 mg/dL) Urine Leukocyte Esterase Trace (NEG) Urine RBC Rare /HPF (0-2) Urine WBC 5-10 /HPF (0-4) Urine Squamous Epithelial Cells Mod /LPF Urine Bacteria Few /HPF (0-FEW) Urine Hyaline Casts Moderate /HPF Urine Mucus Slight /LPF Laboratory Tests 03/21/21 13:32 Laboratory Tests 03/21/21 13:32 Vital Signs: Vital Signs Date Time Temp Pulse Resp B/P (MAP) Pulse Ox O2 Delivery O2 Flow Rate FiO2 03/21/21 14:57 21 196/88 (124) Room Air 03/21/21 14:45 72 98 03/21/21 13:09 98.3 98.3 EKG: EKG: EKG was done at 1338, heart rate of 65 bpm, sinus rhythm, left axis deviation, incomplete left bundle branch block no ST segment ovation [] Radiology/Procedures: Radiology/Procedures: [] Course & Med Decision Making: Course & Med Decision Making Pertinent Labs and Imaging studies reviewed. (See chart for details) Patient is an 80-year-old female who was evaluated here in ER due to general weakness and dizziness, patient was found to be dehydrated patient was given IV fluid in ER, she feels much better. Patient was discharged home with her daughter. Dragon Disclaimer: DragPrismatic Disclaimer: This electronic medical record was generated, in whole or in part, using a voice recognition dictation system. Departure Departure Impression: Primary Impression: Dehydration Additional Impression: Weakness Disposition: 01 HOME / SELF CARE / HOMELESS Condition: IMPROVED Referrals: MEERA RYAN MD (PCP) Patient Instructions: Dehydration, Adult, Weakness Additional Instructions: Thank you for visiting our Emergency Department. We appreciate you trusting us with your care. If any additional problems come up don't hesitate to return to visit us. Please follow up with your primary care provider so they can plan additional care if needed and know about the problem that you had. If symptoms worsen come back to the Emergency Department. Any concerning symptoms that start such as chest pain, shortness of air, weakness or numbness on one side of the body, running high fevers or any other concerning symptoms return to the ER. DELANEY CABRERA DO March 21, 2021 17:28
[2021-03-21 17:45] VITALS: BP 187/84
== END 2021-03-21 18:36 | disposition home or self-care (01) ==
LOC: ER 13:09
DX: E86.0 Dehydration (principal); R53.1 Weakness; R42 Dizziness and giddiness; E78.00 Pure hypercholesterolemia, unspecified; I10 Essential (primary) hypertension; Z90.710 Acquired absence of both cervix and uterus; Z90.89 Acquired absence of other organs; Z88.0 Allergy status to penicillin; Z88.5 Allergy status to narcotic agent
CPT/HCPCS: 36415; 80053; 81001; 83735; 83880; 84484; 85025; 87086; 93005; 99285; J7040

== ENCOUNTER → 2021-03-21 | Outpatient (CLI) | payer MEDICARE, OTHER ==
[~2021-03-21] MED LIST changes: +AMLO-187 PO; -AMLO10TA8 PO; -ENAL20TA PO; +ENAL20TA10 PO
--- NOTE | 2021-03-21 11:52 | RAD ---
DATE: March 21, 2021 EXAM: MAMMO JAY SCREENING BILATERAL HISTORY: Screening study. COMPARISON: 2017 and 2018 and 2019 This study was interpreted with the benefit of Computerized Aided Detection (CAD). FINDINGS: Breast Density: SCATTERED The breast parenchyma shows scattered fibroglandular densities. Breast parenchyma level B.. There are no dominant suspicious masses, suspicious microcalcifications or evidence of architectural distortion. Right breast is denser than the left side. This was seen previously. IMPRESSION: No mammographic indicators for malignancy. BI-RADS CATEGORY: 2 BENIGN FINDING RECOMMENDED FOLLOW-UP: 12M 12 MONTH FOLLOW-UP PQRS compliance statement: Patient information was entered into a reminder system with a target due date March 22, 2022 for the next mammogram. Mammography is a sensitive method for finding small breast cancers, but it does not detect them all and is not a substitute for careful clinical examination. A negative mammogram does not negate a clinically suspicious finding and should not result in delay in biopsying a clinically suspicious abnormality. "Our facility is accredited by the [employer]." The patient's breast density may affect the ability of mammography to detect breast cancer. There are 4 categories of breast density, A, B, C and D. Breast density A means that most of the breast tissue is replaced with adipose tissue and therefore is not dense. Breast density B means that the breast tissue is mildly dense and scattered. Breast density C means that the breast tissue is heterogeneously dense. Breast density D means that the breast tissue is very dense. Breast densities especially C and D may decrease the sensitivity of mammography to detect breast cancer. Therefore, the patient may benefit from 3-D breast mammography (3D breast tomography) as a part of their screening mammogram. Insurance may or may not pay for this additional imaging. The patient's breast density based on today's mammogram is category B.
== END ==
LOC: MAMMO 10:45
PROVIDERS: ATTEND Internal Medicine
DX: Z12.31 Encounter for screening mammogram for malignant neoplasm of breast (principal)
CPT/HCPCS: 77063; 77067

== ENCOUNTER → 2021-04-23 | Day surgery (SDC) | payer MEDICARE, OTHER ==
[~2021-04-23] VITALS: Ht 156.2 cm; Wt 50.0 kg
[~2021-04-23] MED LIST changes: +IV RINGERS,LACTATED 1000ML 1,000 ML IV SCH; +PROPOFOL 10 MG/ML (20ML) VIAL. IV ONE; +hydrALAZINE 20 MG/ML VIAL. IVP ONE; +hydrALAZINE 20 MG/ML VIAL. ONE
[2021-04-23 13:25] VITALS: BP_SYST 215
--- NOTE | 2021-04-23 14:19 | PDOC4 ---
PROCEDURE Procedure EGD/biopsies/dilation Indication: dysphagia Meds: per anesthesia Findings: E--Grade A reflux at 37cm. G--patchy antral erythema, biopsied. D--Normal to second portion. --Dilated with 52F Medrano w/o resistance. Moira. well. IMP: GERD Antral erythema. REC: Trial of omeprazole 40mg daily. Resume meds and diet. Await biopsies. F/u in 2 weeks. WALTER ANGEL MD Apr 23, 2021 14:19
[2021-04-23 14:58] VITALS: BP 175/82
--- NOTE | 2021-04-26 12:07 | PATHOLOGY ---
[facility] Accession Number: [id number] . 01 Material submitted: . stomach - ANTRUM BIOPSY. Modifiers: ANTRUM . 01 Clinical history: . DYSPHAGIA EGD . 02 Diagnosis: Gastric biopsies, antrum: - Chronic gastritis, mild. (JPM:rajesh; 04/26/2021) S 04/26/2021 1019 Local . 02 Comment: Sections of the gastric biopsy reveal segments of gastric antral and antral/body transition mucosa showing congestion and mild chronic inflammation. A properly controlled immunoperoxidase stain for Helicobacter is negative for Helicobacter organisms. (JPM:rajesh; 04/26/2021) . Special stain performed: Immunoperoxidase stain for Helicobacter on A1 . 02 Electronically signed: . Chapincito Smith MD, Pathologist NPI- [id number] . 01 Gross description: . Received in formalin labeled "Danay, Mercedes, antrum bx" are 2 mcneill-brown soft tissue fragments measuring in aggregate 0.5 x 0.3 x 0.1 cm. The specimen is submitted entirely in A1. (CORINE; 04/25/2021) CORINE/CORINE 04/25/2021 1142 Local . 02 Pathologist provided ICD-10: K29.50 . 02 CPT . 052360, P93161 Specimen Comment: A courtesy copy of this report has been sent to [phone], [phone] Specimen Comment: [id number] Specimen Comment: Report sent to / DR RYAN Performed at: 01 [facility] [address], [place], [place] [id number] MD Kaushal Zleaya MD Phone: [phone] Performed at: 02 [facility] [address] [place], [place] [id number] MD Chapincito Smith MD Phone: [phone]
== END | disposition home or self-care (01) ==
LOC: SURG 12:49
PROVIDERS: ATTEND Internal Medicine Gastroenterology
DX: R13.10 Dysphagia, unspecified (principal); K21.00 Gastro-esophageal reflux disease with esophagitis, without bleeding; K29.50 Unspecified chronic gastritis without bleeding; K31.89 Other diseases of stomach and duodenum; I10 Essential (primary) hypertension; E78.00 Pure hypercholesterolemia, unspecified; F32.9 Major depressive disorder, single episode, unspecified; M19.90 Unspecified osteoarthritis, unspecified site; Z85.3 Personal history of malignant neoplasm of breast; Z90.710 Acquired absence of both cervix and uterus; Z98.890 Other specified postprocedural states; Z79.82 Long term (current) use of aspirin; Z79.899 Other long term (current) drug therapy; Z88.0 Allergy status to penicillin; Z88.5 Allergy status to narcotic agent; Z20.822 Contact with and (suspected) exposure to COVID-19
CPT/HCPCS: 43239; 43450; 87426; 88305; 88342; J0360; J2704

== ENCOUNTER → 2021-11-06 | Outpatient (CLI) | payer MEDICARE, OTHER ==
[2021-04-23 14:58] VITALS: BP 175/82
[~2021-11-06] MED LIST changes: -IV RINGERS,LACTATED 1000ML 1,000 ML IV SCH; -PROPOFOL 10 MG/ML (20ML) VIAL. IV ONE; -hydrALAZINE 20 MG/ML VIAL. IVP ONE; -hydrALAZINE 20 MG/ML VIAL. ONE
--- NOTE | 2021-11-07 16:26 | CARD ---
MR#: [id number] Date of Study: 11/06/2021 Ordering Physician: VALDO RAMACHANDRAN, Referring Physician: VALDO RAMACHANDRAN Tech: Yokasta Samuel [facility] APPROVED REPORT EXAM: Two-dimensional and M-mode echocardiogram with Doppler and color Doppler. Other Information Quality : AverageHR: 64bpm Rhythm : NSR INDICATION Syncope RISK FACTORS Hypertension 2D DIMENSIONS RVDd2.8 (2.9-3.5cm)Left Atrium(2D)2.8 (1.6-4.0cm) IVSd1.0 (0.7-1.1cm)Aortic Root(2D)2.5 (2.0-3.7cm) LVDd2.9 (3.9-5.9cm)LVOT Diameter2.0 (1.8-2.4cm) PWd0.9 (0.7-1.1cm)LVDs2.0 (2.5-4.0cm) FS (%) 29.7 %SV18.2 ml LVEF(%)58.6 (>50%) Aortic Valve AoV Peak Devin.189.6cm/sAoV VTI43.3cm AO Peak GR.14.4mmHgLVOT Peak Devin.162.7cm/s AO Mean GR.7mmHgAVA (VMAX)2.74cm2 Mitral Valve MV E Tljytvaw706.6cm/sMV DECEL SMER953ft MV A Rbgwhwci039.2cm/sE/A Ratio0.8 Pulmonary Valve PV Peak Fatixprz205.4cm/s Tricuspid Valve TR P. Wcnhuhsu475zx/sTR Peak Gr.38mmHg LEFT VENTRICLE The left ventricle is normal size. There is borderline to mild concentric left ventricular hypertroph y. The left ventricular systolic function is normal and the ejection fraction is within normal range. Estimated ejection fraction 60-65%. There is normal LV segmental wall motion. Transmitral Doppler fl ow pattern is Grade I-abnormal relaxation pattern. RIGHT VENTRICLE The right ventricle is normal size. There is normal right ventricular wall thickness. The right ventr icular systolic function is normal. ATRIA The left atrium size is normal. The right atrium size is normal. The interatrial septum is intact wit h no evidence for an atrial septal defect or patent foramen ovale as noted on 2-D or Doppler imaging. AORTIC VALVE The aortic valve is normal in structure and function. Doppler and Color Flow revealed no significant aortic regurgitation. There is no significant aortic valvular stenosis. MITRAL VALVE The mitral valve is normal in structure and function. There is no evidence of mitral valve prolapse. There is no mitral valve stenosis. Doppler and Color-flow revealed mild mitral regurgitation. TRICUSPID VALVE The tricuspid valve is normal in structure and function. Doppler and Color Flow revealed mild tricusp id regurgitation. Estimated PAP 30-35 mmHg. There is no tricuspid valve stenosis. PULMONIC VALVE Doppler and Color Flow revealed mild pulmonic valvular regurgitation. There is no pulmonic valvular s tenosis. GREAT VESSELS The aortic root is normal in size. The ascending aorta is normal in size. The IVC is normal in size a nd collapses >50% with inspiration. PERICARDIAL EFFUSION There is no evidence of significant pericardial effusion. Critical Notification Critical Value: No <Conclusion> The left ventricular systolic function is normal and the ejection fraction is within normal range. E stimated ejection fraction 60-65%. There is normal LV segmental wall motion. Signed by : Frank Chawla, Electronically Approved : 11/07/2021 16:26:15
== END ==
LOC: ECHO 10:19
PROVIDERS: ATTEND Internal Medicine Cardiovascular Disease
DX: I08.8 Other rheumatic multiple valve diseases (principal); I31.3 Pericardial effusion (noninflammatory); R55 Syncope and collapse
CPT/HCPCS: 93306

== ENCOUNTER → 2022-03-28 | Outpatient (CLI) | payer MEDICARE, OTHER ==
[2021-04-23 14:58] VITALS: BP 175/82
--- NOTE | 2022-03-28 15:58 | RAD ---
EXAM: BILATERAL DIGITAL 3D SCREENING MAMMOGRAPHY. HISTORY: Routine mammographic screening. TECHNIQUE: Bilateral digital 3D and tomographic images were obtained in CC and MLO projections. Compu ter-aided detection was applied. COMPARISON: 03/21/2021, 03/14/2020. COMPOSITION: C. The breasts are heterogeneously dense, which may obscure small masses. FINDINGS: Asymmetrically greater parenchymal density on the right is stable chronically. Scattered an d vascular calcifications are benign. There are no suspicious masses, microcalcifications or architec tural distortion. The parenchymal pattern is stable. BI-RADS CATEGORY 2: Benign. RECOMMENDATION: 1. Routine screening mammography in one year. If mammography demonstrates dense breast tissue (heterogenously dense or extremely dense, category C or D), which could hide abnormalities, and if other risk factors for breast cancer have been identifi ed, supplemental screening tests that may be suggested by the ordering physician may be of benefit. D ense breast tissue, in and of itself, is a relatively common condition. Therefore, this information i s not provided to cause undue concern, but rather to raise awareness and to promote discussion with t he referring physician regarding the presence of other risk factors, in addition to dense breast tiss ue. The results of this mammography examination is provided to the patient and referring physician. T he patient should contact their referring physician if any questions or concerns exist regarding this report. PQRS compliance statement - Patient information was entered into a reminder system with a target due date for the next mammogram. "Our facility is accredited by the [employer] Mammography Program." Electronically signed by: Kg Gurrola MD (03/28/2022 3:55 PM) [facility]
== END ==
LOC: MAMMO 14:33
PROVIDERS: ATTEND Internal Medicine
DX: Z12.31 Encounter for screening mammogram for malignant neoplasm of breast (principal)
CPT/HCPCS: 77063; 77067

== ENCOUNTER 2022-04-07 08:24 | Inpatient (IN) | payer MEDICARE, OTHER ==
[~2022-04-07] VITALS: Ht 154.9 cm; Wt 47.8 kg
--- NOTE | 2022-04-07 08:26 | PHYS DOC ---
Past Medical History Past Medical History: Cancer, High Cholesterol, Hypertension, Other Additional Past Medical Histor: LEFT BREAST CA Past Surgical History: Appendectomy, Hysterectomy, Tonsillectomy Smoking Status: Never Smoker Alcohol Use: Rarely Drug Use: None Adult General Chief Complaint Chief Complaint: DIZZY/LIGHT HEADED HPI HPI Patient is a 81 year old female presenting to the emergency department for evaluation of dizziness and lightheaded sensation that has been going on for at least 1 month. I asked her what was different this morning that prompted her to call 911 and she said she felt that it was worse as she had a room spinning sensation when she tried to get up and she also felt a lightheaded sensation also when she tried to get up. She denied any nausea vomiting diaphoresis chest pain shortness of breath unilateral weakness numbness tingling vision changes confusion or dysarthria. She currently has a Holter monitor in place from cardiology. She is in no acute distress with normal vital signs other than hypertension. Review of Systems Review of Systems Constitutional: Denies fever or chills [] Eyes: Denies change in visual acuity, redness, or eye pain [] HENT: Denies nasal congestion or sore throat [] Respiratory: Denies cough or shortness of breath [] Cardiovascular: No additional information not addressed in HPI [] GI: Denies abdominal pain, nausea, vomiting, bloody stools or diarrhea [] : Denies dysuria or hematuria [] Musculoskeletal: Denies back pain or joint pain [] Integument: Denies rash or skin lesions [] Neurologic: Denies headache, focal weakness or sensory changes [] All other systems were reviewed and found to be within normal limits, except as documented in this note. Current Medications Current Medications Current Medications Medications (Trade) Dose Ordered Sig/Seth Start Time Stop Time Status Last Admin Dose Admin Potassium Chloride (Klor-Con) 40 meq 1X ONCE 04/07/22 10:45 04/07/22 10:46 DC 04/07/22 11:01 40 MEQ Allergies Allergies Allergies Coded Allergies Type Severity Reaction Last Updated Verified codeine Allergy Intermediate SEE COMMENT 04/07/22 Yes Penicillins Adverse Reaction Mild N/V 04/07/22 Yes Physical Exam Physical Exam Constitutional: Well developed, well nourished, no acute distress, non-toxic appearance. [] HENT: Normocephalic, atraumatic, bilateral external ears normal, oropharynx moist, no oral exudates, nose normal. [] Eyes: PERRLA, EOMI, conjunctiva normal, no discharge. [] Neck: Normal range of motion, no tenderness, supple, no stridor. [] Cardiovascular:Heart rate regular rhythm, no murmur [] Lungs & Thorax: Bilateral breath sounds clear to auscultation [] Abdomen: Bowel sounds normal, soft, no tenderness, no masses, no pulsatile masses. [] Skin: Warm, dry, no erythema, no rash. [] Back: No tenderness, no CVA tenderness. [] Extremities: No tenderness, no cyanosis, no clubbing, ROM intact, no edema. [] Neurologic: Alert and oriented X 3, normal motor function, normal sensory function, no focal deficits noted. [] Current Patient Data Vital Signs Vital Signs Date Time Temp Pulse Resp B/P (MAP) Pulse Ox O2 Delivery O2 Flow Rate FiO2 04/07/22 08:55 97.5 63 22 181/84 (116) 100 Room Air 97.5 Lab Values Laboratory Tests Test 04/07/22 09:30 04/07/22 09:45 Urine Collection Type Unknown Urine Color (Auto) Colorless Urine Turbidity Clear Urine pH (Auto) 7.5 (<5.0-8.0) Urine Specific [place] 1.004 (1.000-1.030) Urine Protein (Auto) 30 mg/dL (Negative) Urine Glucose (Auto)(UA) Negative mg/dL (Negative) Urine Ketones (Auto) Negative mg/dL (Negative) Urine Blood (Auto) Negative (Negative) Urine Nitrite Negative (Negative) Urine Bilirubin (Auto) Negative (Negative) Urine Urobilinogen (Auto) Normal mg/dL (Normal) Urine Leukocyte Esterase (Auto) Negative (Negative) Urine RBC 0 /HPF (0-2) Urine WBC Rare /HPF (0-4) Urine Squamous Epithelial Cells Occ /LPF Urine Bacteria 0 /HPF (0-FEW) White Blood Count 5.3 x10^3/uL (4.0-11.0) Red Blood Count 4.11 x10^6/uL (3.50-5.40) Hemoglobin 12.7 g/dL (12.0-15.5) Hematocrit 37.2 % (36.0-47.0) Mean Corpuscular Volume 90 fL (79-100) Mean Corpuscular Hemoglobin 31 pg (25-35) Mean Corpuscular Hemoglobin Concent 34 g/dL (31-37) Red Cell Distribution Width 14.9 % (11.5-14.5) H Platelet Count 301 x10^3/uL (140-400) Neutrophils (%) (Auto) 53 % (31-73) Lymphocytes (%) (Auto) 32 % (24-48) Monocytes (%) (Auto) 7 % (0-9) Eosinophils (%) (Auto) 5 % (0-3) H Basophils (%) (Auto) 3 % (0-3) Neutrophils # (Auto) 2.8 x10^3/uL (1.8-7.7) Lymphocytes # (Auto) 1.7 x10^3/uL (1.0-4.8) Monocytes # (Auto) 0.4 x10^3/uL (0.0-1.1) Eosinophils # (Auto) 0.3 x10^3/uL (0.0-0.7) Basophils # (Auto) 0.2 x10^3/uL (0.0-0.2) Sodium Level 146 mmol/L (136-145) H Potassium Level 3.3 mmol/L (3.5-5.1) L Chloride Level 112 mmol/L (98-107) H Carbon Dioxide Level 19 mmol/L (21-32) L Anion Gap 15 (6-14) H Blood Urea Nitrogen 19 mg/dL (7-20) Creatinine 1.6 mg/dL (0.6-1.0) H Estimated GFR (Cockcroft-Gault) 37.3 BUN/Creatinine Ratio 12 (6-20) Glucose Level 82 mg/dL (70-99) Calcium Level 10.7 mg/dL (8.5-10.1) H Total Bilirubin 0.6 mg/dL (0.2-1.0) Aspartate Amino Transferase (AST) 20 U/L (15-37) Alanine Aminotransferase (ALT) 18 U/L (14-59) Alkaline Phosphatase 66 U/L (46-116) Troponin I High Sensitivity 48 ng/L (4-50) YR-Vrp-I-Type Natriuretic Peptide 90 pg/mL (0-449) Total Protein 8.0 g/dL (6.4-8.2) Albumin 3.8 g/dL (3.4-5.0) Albumin/Globulin Ratio 0.9 (1.0-1.7) L Thyroid Stimulating Hormone (TSH) 3.777 uIU/mL (0.358-3.74) H Laboratory Tests 04/07/22 09:45 Laboratory Tests 04/07/22 09:45 EKG EKG Sinus rhythm at 66 bpm with leftward axis. There is noticeable contour abnormality in the ST segments in V2 and V3 but is not in a pattern consistent with a STEMI but there is inverted T waves in aVL and V6. System did not allow me to compare to prior EKGs. Radiology/Procedures Radiology/Procedures [] Course & Med Decision Making Course & Med Decision Making I will check labs and imaging treat symptoms and reassess. Patient's work-up shows only minor metabolic derangements but given she is still unsteady on her feet emergency department and she feels unsafe at home we will plan for admission for further observation and treatment. Dragon Disclaimer Dragon Disclaimer This electronic medical record was generated, in whole or in part, using a voice recognition dictation system. Departure Departure Impression: Primary Impression: Dizziness Additional Impressions: Altered gait Vertigo Hypokalemia Disposition: ADMITTED INPATIENT Admitting Physician: BING (Jaden) Condition: STABLE Referrals: MEERA RYAN MD (PCP) Problem Qualifiers PAUL GARY DO April 07, 2022 08:26
--- NOTE | 2022-04-07 08:52 | RAD ---
AP chest. HISTORY: Dizziness AP view was taken of the chest. Lungs are free of infiltrates. Heart is normal in size. There is no e ffusion. IMPRESSION: 1. No acute chest disease. Electronically signed by: Fermín Eddy MD (04/07/2022 8:49 AM) [facility]
--- NOTE | 2022-04-07 09:04 | RAD ---
CT brain without contrast. HISTORY: Dizziness CT scan of brain was done without contrast. Sinuses are clear. There is no skull fracture. There is n o intracranial hemorrhage or subdural hematoma. There is mild diffuse atrophy. Ventricles are normal in size. There is no mass effect or shift of the midline. An acute CVA is not identified. There is de creased density in the periventricular white matter from chronic microvascular changes. IMPRESSION: 1. Atrophy and chronic white matter changes. 2. No intracranial hemorrhage or acute CVA noted. PQRS Compliance Statement: One or more of the following individualized dose reduction techniques were utilized for this examinat ion: 1. Automated exposure control 2. Adjustment of the mA and/or kV according to patient size 3. Use of iterative reconstruction technique Electronically signed by: Fermín Eddy MD (04/07/2022 9:02 AM) [facility]
[2022-04-07 09:57] LABS: BASO # 0.2 x10^3/uL (0.0-0.2); BASO % 3 % (0-3); EOS # 0.3 x10^3/uL (0.0-0.7); EOS % 5 % (0-3); HEMATOCRIT 37.2 % (36.0-47.0); HEMOGLOBIN 12.7 g/dL (12.0-15.5); LYMPH # 1.7 x10^3/uL (1.0-4.8); LYMPH % 32 % (24-48); MEAN CORPUSCULAR HEMOGLOBIN 31 pg (25-35); MEAN CORPUSCULAR HGB CONC 34 g/dL (31-37); MEAN CORPUSCULAR VOLUME 90 fL (79-100); MONO # 0.4 x10^3/uL (0.0-1.1); MONO % 7 % (0-9); NEUT # 2.8 x10^3/uL (1.8-7.7); NEUT % 53 % (31-73); PLATELET COUNT 301 x10^3/uL (140-400); RED BLOOD COUNT 4.11 x10^6/uL (3.50-5.40); RED CELL DISTRIBUTION WIDTH 14.9 % (11.5-14.5); WHITE BLOOD COUNT 5.3 x10^3/uL (4.0-11.0)
[2022-04-07 09:58] LABS: BACTERIA,URINE 0 /HPF (0-FEW); RBC,URINE 0 /HPF (0-2); WBC,URINE RARE /HPF (0-4)
[2022-04-07 10:14] LABS: CALCIUM 10.7 mg/dL (8.5-10.1); CREATININE 1.6 mg/dL (0.6-1.0); GFR 37.3; POTASSIUM 3.3 mmol/L (3.5-5.1)
[2022-04-07 10:21] LABS: ALBUMIN 3.8 g/dL (3.4-5.0); ALBUMIN/GLOBULIN RATIO 0.9 (1.0-1.7); TOTAL BILIRUBIN 0.6 mg/dL (0.2-1.0)
[2022-04-07] MEDS ORDERED: POTASSIUM CHLORIDE 20 MEQ TABLET.ER. PO ONE ×2 (10:45→18:15)
[2022-04-07] MEDS ORDERED: ONDANSETRON PF 4 MG/2 ML VIAL. IVP PRN (11:45)
--- NOTE | 2022-04-07 13:42 | PDOC2 ---
NEUROLOGY CONSULT Date of Service DOS: DATE: 04/07/22 TIME: 13:36 History of Present Illness History of Present Illness The patient is an 81-year-old right-handed female who says that she had vertigo early this morning. She fell. She did not lose consciousness. About 2 weeks ago she was doing her laundry and had lightheadedness and fainted at that time did not have vertigo. There is no headache, diplopia, dysphagia, dysarthria, hearing loss, but she does have tinnitus. There is no history of stroke, seizure, or head injury. Cardiology has been following her, she previously had a loop recorder, I am not sure if it still in place Past Medical History Cardiovascular: HTN, Syncope Heme/Onc: Cancer (Breast) Hepatobiliary: Other (Pancreatic cyst) Past Surgical History Past Surgical History: Appendectomy, Tonsillectomy, Hysterectomy Family History Family History: Cancer Social History Social History , no alcohol or tobacco, lives alone Current Medications Current Medications Current Medications Potassium Chloride (Klor-Con) 40 meq 1X ONCE PO Last administered on 04/07/22at 11:01; Start 04/07/22 at 10:45; Stop 04/07/22 at 10:46; Status DC Ondansetron HCl (Zofran) 4 mg PRN Q8HRS PRN IVP NAUSEA/VOMITING; Start 04/07/22 at 11:45; Stop 04/08/22 at 11:44 Active Scripts Active Reported Boniva (Ibandronate Sodium) 150 Mg Tablet 150 Mg PO MONTHLY Enalapril Maleate 20 Mg Tablet 2 Tab PO DAILY Crestor (Rosuvastatin Calcium) 40 Mg Tablet 40 Mg PO HS Amlodipine Besylate 10 Mg Tablet 10 Mg PO DAILY Aspir 81 (Aspirin) 81 Mg Tablet. 81 Mg PO DAILY Allergies Allergies: Coded Allergies: codeine (Verified Allergy, Intermediate, SEE COMMENT, 04/07/22) TOLERATES HYDROCODONE/APAP Penicillins (Verified Adverse Reaction, Mild, N/V, 04/07/22) ROS Review of System Negative for fever, chills, weight loss, shortness of breath, chest pain, indigestion, hematochezia, melena, and dysuria. Full 14-point review of systems is negative. Physical Exam Physical Examination General: Well-developed, well-nourished black female in no acute distress HEENT: Normocephalic andatraumatic. Tympanic membranes clear.Temporal arteriespulsatile and nontender. Neck: Supple without bruit, no meningismus Musculoskeletal: Stability:see neurologic. Gait exam:see neurologic. Tone:see neurologic.Strength:see neurologic. Neurological: Mental Status:intact, orientation, memory, attention span/concentration, language, fund of knowledge normal. Cranial Nerves:Pupils equal and reactive to light, extraocular movements areintact, visual diaz are full to confrontation. Facial sensation is normal. There is no facial asymmetry. Vestibulo-ocular reflex is intact. Few beats of nystagmus with [place]-Hallpike right. Palate elevates and tongue protrudes in midline. All other cranial related problems are negative except as mentioned before.Reflexes:2+ and sy mmetric with flexor plantar responses. Motor:5/5 strength with normal tone and bulk. Coordination:Finger-nose finger and [id number]-xp-[id number] testing are normal. Rapid alternating movements and fine finger movements are intact. Gait:Not tested. Sensory:Normal pinprick, vibration, light touch, proprioception. Vitals VITALS Vital Signs Date Time Temp Pulse Resp B/P (MAP) Pulse Ox O2 Delivery O2 Flow Rate FiO2 04/07/22 10:02 58 29 190/81 (117) 100 Room Air 04/07/22 08:55 97.5 97.5 Labs Labs Laboratory Tests Test 04/07/22 09:30 04/07/22 09:45 Urine Collection Type Unknown Urine Color (Auto) Colorless Urine Turbidity Clear Urine pH (Auto) 7.5 (<5.0-8.0) Urine Specific [place] 1.004 (1.000-1.030) Urine Protein (Auto) 30 mg/dL (Negative) Urine Glucose (Auto)(UA) Negative mg/dL (Negative) Urine Ketones (Auto) Negative mg/dL (Negative) Urine Blood (Auto) Negative (Negative) Urine Nitrite Negative (Negative) Urine Bilirubin (Auto) Negative (Negative) Urine Urobilinogen (Auto) Normal mg/dL (Normal) Urine Leukocyte Esterase (Auto) Negative (Negative) Urine RBC 0 /HPF (0-2) Urine WBC Rare /HPF (0-4) Urine Squamous Epithelial Cells Occ /LPF Urine Bacteria 0 /HPF (0-FEW) White Blood Count 5.3 x10^3/uL (4.0-11.0) Red Blood Count 4.11 x10^6/uL (3.50-5.40) Hemoglobin 12.7 g/dL (12.0-15.5) Hematocrit 37.2 % (36.0-47.0) Mean Corpuscular Volume 90 fL (79-100) Mean Corpuscular Hemoglobin 31 pg (25-35) Mean Corpuscular Hemoglobin Concent 34 g/dL (31-37) Red Cell Distribution Width 14.9 % (11.5-14.5) Platelet Count 301 x10^3/uL (140-400) Neutrophils (%) (Auto) 53 % (31-73) Lymphocytes (%) (Auto) 32 % (24-48) Monocytes (%) (Auto) 7 % (0-9) Eosinophils (%) (Auto) 5 % (0-3) Basophils (%) (Auto) 3 % (0-3) Neutrophils # (Auto) 2.8 x10^3/uL (1.8-7.7) Lymphocytes # (Auto) 1.7 x10^3/uL (1.0-4.8) Monocytes # (Auto) 0.4 x10^3/uL (0.0-1.1) Eosinophils # (Auto) 0.3 x10^3/uL (0.0-0.7) Basophils # (Auto) 0.2 x10^3/uL (0.0-0.2) Sodium Level 146 mmol/L (136-145) Potassium Level 3.3 mmol/L (3.5-5.1) Chloride Level 112 mmol/L (98-107) Carbon Dioxide Level 19 mmol/L (21-32) Anion Gap 15 (6-14) Blood Urea Nitrogen 19 mg/dL (7-20) Creatinine 1.6 mg/dL (0.6-1.0) Estimated GFR (Cockcroft-Gault) 37.3 BUN/Creatinine Ratio 12 (6-20) Glucose Level 82 mg/dL (70-99) Calcium Level 10.7 mg/dL (8.5-10.1) Total Bilirubin 0.6 mg/dL (0.2-1.0) Aspartate Amino Transf (AST/SGOT) 20 U/L (15-37) Alanine Aminotransferase (ALT/SGPT) 18 U/L (14-59) Alkaline Phosphatase 66 U/L (46-116) Troponin I High Sensitivity 48 ng/L (4-50) KA-Xdu-T-Type Natriuretic Peptide 90 pg/mL (0-449) Total Protein 8.0 g/dL (6.4-8.2) Albumin 3.8 g/dL (3.4-5.0) Albumin/Globulin Ratio 0.9 (1.0-1.7) Thyroid Stimulating Hormone (TSH) 3.777 uIU/mL (0.358-3.74) Laboratory Tests Test 04/07/22 09:30 04/07/22 09:45 Urine Collection Type Unknown Urine Color (Auto) Colorless Urine Turbidity Clear Urine pH (Auto) 7.5 (<5.0-8.0) Urine Specific [place] 1.004 (1.000-1.030) Urine Protein (Auto) 30 mg/dL (Negative) Urine Glucose (Auto)(UA) Negative mg/dL (Negative) Urine Ketones (Auto) Negative mg/dL (Negative) Urine Blood (Auto) Negative (Negative) Urine Nitrite Negative (Negative) Urine Bilirubin (Auto) Negative (Negative) Urine Urobilinogen (Auto) Normal mg/dL (Normal) Urine Leukocyte Esterase (Auto) Negative (Negative) Urine RBC 0 /HPF (0-2) Urine WBC Rare /HPF (0-4) Urine Squamous Epithelial Cells Occ /LPF Urine Bacteria 0 /HPF (0-FEW) White Blood Count 5.3 x10^3/uL (4.0-11.0) Red Blood Count 4.11 x10^6/uL (3.50-5.40) Hemoglobin 12.7 g/dL (12.0-15.5) Hematocrit 37.2 % (36.0-47.0) Mean Corpuscular Volume 90 fL (79-100) Mean Corpuscular Hemoglobin 31 pg (25-35) Mean Corpuscular Hemoglobin Concent 34 g/dL (31-37) Red Cell Distribution Width 14.9 % (11.5-14.5) Platelet Count 301 x10^3/uL (140-400) Neutrophils (%) (Auto) 53 % (31-73) Lymphocytes (%) (Auto) 32 % (24-48) Monocytes (%) (Auto) 7 % (0-9) Eosinophils (%) (Auto) 5 % (0-3) Basophils (%) (Auto) 3 % (0-3) Neutrophils # (Auto) 2.8 x10^3/uL (1.8-7.7) Lymphocytes # (Auto) 1.7 x10^3/uL (1.0-4.8) Monocytes # (Auto) 0.4 x10^3/uL (0.0-1.1) Eosinophils # (Auto) 0.3 x10^3/uL (0.0-0.7) Basophils # (Auto) 0.2 x10^3/uL (0.0-0.2) Sodium Level 146 mmol/L (136-145) Potassium Level 3.3 mmol/L (3.5-5.1) Chloride Level 112 mmol/L (98-107) Carbon Dioxide Level 19 mmol/L (21-32) Anion Gap 15 (6-14) Blood Urea Nitrogen 19 mg/dL (7-20) Creatinine 1.6 mg/dL (0.6-1.0) Estimated GFR (Cockcroft-Gault) 37.3 BUN/Creatinine Ratio 12 (6-20) Glucose Level 82 mg/dL (70-99) Calcium Level 10.7 mg/dL (8.5-10.1) Total Bilirubin 0.6 mg/dL (0.2-1.0) Aspartate Amino Transf (AST/SGOT) 20 U/L (15-37) Alanine Aminotransferase (ALT/SGPT) 18 U/L (14-59) Alkaline Phosphatase 66 U/L (46-116) Troponin I High Sensitivity 48 ng/L (4-50) ME-Yze-J-Type Natriuretic Peptide 90 pg/mL (0-449) Total Protein 8.0 g/dL (6.4-8.2) Albumin 3.8 g/dL (3.4-5.0) Albumin/Globulin Ratio 0.9 (1.0-1.7) Thyroid Stimulating Hormone (TSH) 3.777 uIU/mL (0.358-3.74) Images Images CT brain without contrast. HISTORY: Dizziness CT scan of brain was done without contrast. Sinuses are clear. There is no skull fracture. There is no intracranial hemorrhage or subdural hematoma. There is mild diffuse atrophy. Ventricles are normal in size. There is no mass effect or shift of the midline. An acute CVA is not identified. There is decreased density in the periventricular white matter from chronic microvascular changes. IMPRESSION: 1. Atrophy and chronic white matter changes. 2. No intracranial hemorrhage or acute CVA noted. Assessment/Plan Assessment/Plan Impression: Right peripheral vestibular dysfunction, no evidence of stroke or central nervous system disease Previous problems with syncope over several years Recommendations: Scheduled meclizine, will switch to as needed after a day or so Hold off on MRI of the brain, we will need to see if she still has her loop recorder in to accomplish that Physical therapy Low-dose aspirin Thank you for letting me help with the patient's care. MALOU DEMPSEY MD April 07, 2022 13:42
[2022-04-07] MEDS: MECLIZINE HCL 12.5 MG TABLET. PO SCH ×2 (14:21→21:51)
[2022-04-07 15:15] VITALS: BP 129/75
[2022-04-07 19:00] VITALS: BP 172/74
[2022-04-07 20:00] VITALS: BP_SYST 163; BP_SYST 170; BP_SYST 184; BP_DIAS 77; BP_DIAS 79; BP_DIAS 89
[2022-04-07] MEDS ORDERED: NON FORMULARY ITEM (Ibandronate Sodium (Boniva) 150 MG) PO SCH (21:45)
[2022-04-07] MEDS: ATORVASTATIN CALCIUM 40 MG TABLET. PO SCH (21:50)
[2022-04-07] MEDS: LISINOPRIL 20 MG TABLET PO SCH (21:51)
[2022-04-07 23:00] VITALS: BP 150/79
[2022-04-08 03:00] VITALS: BP 145/65
[2022-04-08 06:00] LABS: CALCIUM 9.2 mg/dL (8.5-10.1); CREATININE 1.3 mg/dL (0.6-1.0); GFR 47.5; POTASSIUM 4.1 mmol/L (3.5-5.1)
[2022-04-08 06:01] LABS: BASO % 1 % (0-3); EOS # 0.3 x10^3/uL (0.0-0.7); EOS % 6 % (0-3); HEMATOCRIT 32.2 % (36.0-47.0); HEMOGLOBIN 10.9 g/dL (12.0-15.5); LYMPH # 1.7 x10^3/uL (1.0-4.8); LYMPH % 31 % (24-48); MEAN CORPUSCULAR HEMOGLOBIN 31 pg (25-35); MEAN CORPUSCULAR HGB CONC 34 g/dL (31-37); MEAN CORPUSCULAR VOLUME 91 fL (79-100); MONO # 0.5 x10^3/uL (0.0-1.1); MONO % 9 % (0-9); NEUT # 2.9 x10^3/uL (1.8-7.7); NEUT % 53 % (31-73); PLATELET COUNT 258 x10^3/uL (140-400); RED BLOOD COUNT 3.55 x10^6/uL (3.50-5.40); RED CELL DISTRIBUTION WIDTH 14.7 % (11.5-14.5); WHITE BLOOD COUNT 5.4 x10^3/uL (4.0-11.0)
[2022-04-08 07:00] VITALS: BP 147/69
[2022-04-08] MEDS: MECLIZINE HCL 12.5 MG TABLET. PO SCH (08:37)
[2022-04-08] MEDS: ASPIRIN ENTERIC COATED 81 MG TABLET.DR. PO SCH (08:37)
--- NOTE | 2022-04-08 08:50 | HP ---
DATE OF SERVICE: 04/08/2022 ADMIT DATE: 04/07/2022 HISTORY OF PRESENT ILLNESS: The patient is an 81-year-old -[place] female patient who was brought to the Emergency Room for evaluation of dizziness and lightheadedness sensation that has been going on for at least 1 month according to her. Apparently, her episode was worse and had the room spinning sensation when she tried to get up. She also felt lightheaded sensation when she tried to get up. She denied any nausea or vomiting. Denied any palpitations or chest pain. Denied any weakness or numbness. Denied any diplopia or change in vision or dysarthria. She apparently was seen by her primary care physician, Dr. Leahy in his office and was also evaluated by the Cardiology team and in fact had an event monitor still in place. She was evaluated in the Emergency Room and has had lab work as well as imaging studies. Her CT scan of the head showed atrophy and chronic white matter changes. No intracranial hemorrhage or acute cerebrovascular accident noted. Her chest x-ray basically showed the lungs are free of infiltrate, heart is normal in size, there is no effusion. 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 PAST MEDICAL HISTORY: Significant for hypertension, hyperlipidemia. She does have a history of pancreatic cyst and breast cancer. PAST SURGICAL HISTORY: Significant for total hysterectomy and bilateral salpingo-oophorectomy. She apparently had had a loop recorder for syncopal episode. ALLERGIES: SHE IS ALLERGIC TO PENICILLIN AND CODEINE. MEDICATIONS: She is currently on following medications: She is on Crestor 40 mg at bedtime, amlodipine 10 mg once a day, enalapril maleate 20 mg 2 tablets at bedtime, aspirin 81 mg once a day, and Boniva 150 mg p.o. monthly. FAMILY HISTORY: Her sister has brain aneurysm. SOCIAL HISTORY: She is , lives alone. She has 2 daughters. She does not smoke, drink alcohol or recreational drugs. 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 REVIEW OF SYSTEMS: As per history of present illness. PHYSICAL EXAMINATION: GENERAL: On arrival to the Emergency Room, she looked well and was clearly in no apparent respiratory distress. There is no pallor, jaundice or cyanosis. No lymphadenopathy, no thyromegaly, no jugular venous distention. No lower limb edema. VITAL SIGNS: Her heart rate was 69, blood pressure was 206/88, her temperature was 97.5, respiratory rate was 22, and oxygen saturation 100%. HEAD, EYES, EARS, NOSE AND THROAT: Normocephalic, atraumatic. NECK: Supple. HEART: Showed normal first and second heart sounds. No gallop, rub or murmur. CHEST: Clear to auscultation, no crepitation or rhonchi. ABDOMEN: Scaphoid, soft, nontender. NEUROLOGIC: She is awake, alert, oriented to time, place and person. All cranial nerves are intact. She moves extremities without difficulty. She ambulates with a cane. LABORATORY DATA: On admission showed white cell count of 5.3, hemoglobin 12.7, hematocrit 37, MCV 90 and platelet count of 301,000 with normal manual differential. Her chemistry showed a serum sodium 146, potassium 3.3, chloride 112, bicarbonate 19, anion gap of 15 and BUN of 19, creatinine was 1.6, estimated GFR was 37 mL per minute. Her glucose was 82, calcium was 10.7. Total bilirubin, AST, ALT, alkaline phosphatase were normal. Her troponin I high-sensitivity was 48 and beta natriuretic peptide was 90. Her total protein was 8, albumin was 3.8. Her TSH was 3.777. Her urinalysis essentially unremarkable. ASSESSMENT AND PLAN: In summary, this is an 81-year-old -[place] female patient who was admitted with dizziness and what seemed to be vertigo. She also seemed to have also dehydration, hypernatremia and hypokalemia. I reconciled all her medications. We ordered the measurement of her orthostatics and consulted Neurology as well as the Cardiology team. I gave her one dose of potassium at 40 mEq once a day. Also, encouraged water intake. The patient is on monitored bed. FREDRICK/GRADY DR: Kathy TID: [id number]
[2022-04-08] MEDS ORDERED: ASPIRIN ENTERIC COATED 81 MG TABLET.DR. PO SCH (09:00)
--- NOTE | 2022-04-08 09:53 | PN ---
DATE: 04/08/2022 SUBJECTIVE: The patient is sitting on the edge of the bed, eating her breakfast comfortably, in no apparent distress. She has no further episode of dizziness or lightheadedness. She did not feel any room spinning around. Denied any nausea or vomiting. Denied any tingling, numbness or weakness. PHYSICAL EXAMINATION: GENERAL: When I examined her, she was somewhat cachectic. No pallor, jaundiced, or cyanosed. No lymphadenopathy, no thyromegaly, no jugular venous distention. No lower limb edema. VITAL SIGNS: Her heart rate was 69, blood pressure was 145/65, temperature was 98.2, respiratory rate was 16 and oxygen saturation was 98% on room air. HEAD, EYES, EARS, NOSE, AND THROAT: Normocephalic, atraumatic. NECK: Supple. HEART: Showed normal first and second heart sounds. No gallop, rub or murmur. CHEST: Clear to auscultation, no crepitation or rhonchi. ABDOMEN: Scaphoid, soft, nontender. NEUROLOGIC: She was grossly intact. She does have a loop recorder in her chest, slightly on the left side of the midline. Her intake and output are incompletely recorded. LABORATORY DATA: Her lab work this morning showed a white cell count of 5.4, hemoglobin 11, hematocrit 32, MCV 91, and platelet count 258,000 with normal manual differential. Serum sodium is down to 145, potassium up to 4.1, her chloride was 118 and bicarb was 15, BUN of 14, creatinine 1.3. Estimated GFR was 47 mL per minute. Her glucose was 90 and calcium was 9.2. ASSESSMENT: 1. Dizziness and vertigo. 2. Hypernatremia. 3. Hypokalemia that has resolved. 4. Acute on chronic kidney injury. Her creatinine is down from 1.6-1.3. The patient has what seemed to be hyperchloremic acidosis. Other medical problems include hypertension and hyperlipidemia. PLAN: My plan is to continue with current medication. I will consult the physical and occupational therapy as well as Cardiology for evaluation and treatment. SAM/ASHLEY DR: Kathy TID: [id number]
[2022-04-08 11:00] VITALS: BP 155/72
--- NOTE | 2022-04-08 14:10 | PDOC ---
PROGRESS NOTES Date of Service DATE: 04/08/22 TIME: 14:07 Assessment Problems Medical Problems: (1) Altered gait Status: Acute (2) Dizziness Status: Acute (3) Hypokalemia Status: Acute (4) Vertigo Status: Acute Right peripheral vestibular dysfunction, no evidence of stroke or central nervous system disease. No longer has evidence of this on bedside exam Previous problems with syncope over several years, has an event monitor in place Plan Switch to as needed meclizine Hold off on MRI of the brain, we will need to see if she still has her loop recorder in to accomplish that Physical therapy Low-dose aspirin Aim for discharge tomorrow with home health physical therapy Subjective Feels better Objective Vital Signs Date Time Temp Pulse Resp B/P (MAP) Pulse Ox O2 Delivery O2 Flow Rate FiO2 04/08/22 11:00 98.2 66 18 155/72 (99) 100 Room Air 98.2 Intake and Output 04/08/22 07:00 Intake Total 420 ml Balance 420 ml Intake Oral 420 ml # Voids 3 PHYSICAL EXAM Alert. Oriented to time, place and person. PERRL. EOMI. no nystagmus elicited CN: no focal findings. Muscle tone: normal. Muscle strength: 5/5 DTR: 2+ Plantar reflex: Flexor Gait: Does fairly well with a cane, which she has been using for several month. Sensory exam: no abnormal findings. No cerebellar signs elicited. Review of Relevant I have reviewed the following items tracy (where applicable) has been applied. Labs Laboratory Tests Test 04/07/22 09:30 04/07/22 09:45 04/08/22 04:15 Urine Collection Type Unknown Urine Color (Auto) Colorless Urine Turbidity Clear Urine pH (Auto) 7.5 (<5.0-8.0) Urine Specific Amoret 1.004 (1.000-1.030) Urine Protein (Auto) 30 mg/dL (Negative) Urine Glucose (Auto)(UA) Negative mg/dL (Negative) Urine Ketones (Auto) Negative mg/dL (Negative) Urine Blood (Auto) Negative (Negative) Urine Nitrite Negative (Negative) Urine Bilirubin (Auto) Negative (Negative) Urine Urobilinogen (Auto) Normal mg/dL (Normal) Urine Leukocyte Esterase (Auto) Negative (Negative) Urine RBC 0 /HPF (0-2) Urine WBC Rare /HPF (0-4) Urine Squamous Epithelial Cells Occ /LPF Urine Bacteria 0 /HPF (0-FEW) White Blood Count 5.3 x10^3/uL (4.0-11.0) 5.4 x10^3/uL (4.0-11.0) Red Blood Count 4.11 x10^6/uL (3.50-5.40) 3.55 x10^6/uL (3.50-5.40) Hemoglobin 12.7 g/dL (12.0-15.5) 10.9 g/dL (12.0-15.5) Hematocrit 37.2 % (36.0-47.0) 32.2 % (36.0-47.0) Mean Corpuscular Volume 90 fL (79-100) 91 fL (79-100) Mean Corpuscular Hemoglobin 31 pg (25-35) 31 pg (25-35) Mean Corpuscular Hemoglobin Concent 34 g/dL (31-37) 34 g/dL (31-37) Red Cell Distribution Width 14.9 % (11.5-14.5) 14.7 % (11.5-14.5) Platelet Count 301 x10^3/uL (140-400) 258 x10^3/uL (140-400) Neutrophils (%) (Auto) 53 % (31-73) 53 % (31-73) Lymphocytes (%) (Auto) 32 % (24-48) 31 % (24-48) Monocytes (%) (Auto) 7 % (0-9) 9 % (0-9) Eosinophils (%) (Auto) 5 % (0-3) 6 % (0-3) Basophils (%) (Auto) 3 % (0-3) 1 % (0-3) Neutrophils # (Auto) 2.8 x10^3/uL (1.8-7.7) 2.9 x10^3/uL (1.8-7.7) Lymphocytes # (Auto) 1.7 x10^3/uL (1.0-4.8) 1.7 x10^3/uL (1.0-4.8) Monocytes # (Auto) 0.4 x10^3/uL (0.0-1.1) 0.5 x10^3/uL (0.0-1.1) Eosinophils # (Auto) 0.3 x10^3/uL (0.0-0.7) 0.3 x10^3/uL (0.0-0.7) Basophils # (Auto) 0.2 x10^3/uL (0.0-0.2) 0.0 x10^3/uL (0.0-0.2) Sodium Level 146 mmol/L (136-145) 145 mmol/L (136-145) Potassium Level 3.3 mmol/L (3.5-5.1) 4.1 mmol/L (3.5-5.1) Chloride Level 112 mmol/L (98-107) 118 mmol/L (98-107) Carbon Dioxide Level 19 mmol/L (21-32) 15 mmol/L (21-32) Anion Gap 15 (6-14) 12 (6-14) Blood Urea Nitrogen 19 mg/dL (7-20) 14 mg/dL (7-20) Creatinine 1.6 mg/dL (0.6-1.0) 1.3 mg/dL (0.6-1.0) Estimated GFR (Cockcroft-Gault) 37.3 47.5 BUN/Creatinine Ratio 12 (6-20) Glucose Level 82 mg/dL (70-99) 90 mg/dL (70-99) Calcium Level 10.7 mg/dL (8.5-10.1) 9.2 mg/dL (8.5-10.1) Total Bilirubin 0.6 mg/dL (0.2-1.0) Aspartate Amino Transf (AST/SGOT) 20 U/L (15-37) Alanine Aminotransferase (ALT/SGPT) 18 U/L (14-59) Alkaline Phosphatase 66 U/L (46-116) Troponin I High Sensitivity 48 ng/L (4-50) UR-Cje-W-Type Natriuretic Peptide 90 pg/mL (0-449) Total Protein 8.0 g/dL (6.4-8.2) Albumin 3.8 g/dL (3.4-5.0) Albumin/Globulin Ratio 0.9 (1.0-1.7) Thyroid Stimulating Hormone (TSH) 3.777 uIU/mL (0.358-3.74) Laboratory Tests Test 04/08/22 04:15 White Blood Count 5.4 x10^3/uL (4.0-11.0) Red Blood Count 3.55 x10^6/uL (3.50-5.40) Hemoglobin 10.9 g/dL (12.0-15.5) Hematocrit 32.2 % (36.0-47.0) Mean Corpuscular Volume 91 fL (79-100) Mean Corpuscular Hemoglobin 31 pg (25-35) Mean Corpuscular Hemoglobin Concent 34 g/dL (31-37) Red Cell Distribution Width 14.7 % (11.5-14.5) Platelet Count 258 x10^3/uL (140-400) Neutrophils (%) (Auto) 53 % (31-73) Lymphocytes (%) (Auto) 31 % (24-48) Monocytes (%) (Auto) 9 % (0-9) Eosinophils (%) (Auto) 6 % (0-3) Basophils (%) (Auto) 1 % (0-3) Neutrophils # (Auto) 2.9 x10^3/uL (1.8-7.7) Lymphocytes # (Auto) 1.7 x10^3/uL (1.0-4.8) Monocytes # (Auto) 0.5 x10^3/uL (0.0-1.1) Eosinophils # (Auto) 0.3 x10^3/uL (0.0-0.7) Basophils # (Auto) 0.0 x10^3/uL (0.0-0.2) Sodium Level 145 mmol/L (136-145) Potassium Level 4.1 mmol/L (3.5-5.1) Chloride Level 118 mmol/L (98-107) Carbon Dioxide Level 15 mmol/L (21-32) Anion Gap 12 (6-14) Blood Urea Nitrogen 14 mg/dL (7-20) Creatinine 1.3 mg/dL (0.6-1.0) Estimated GFR (Cockcroft-Gault) 47.5 Glucose Level 90 mg/dL (70-99) Calcium Level 9.2 mg/dL (8.5-10.1) Medications Current Medications Potassium Chloride (Klor-Con) 40 meq 1X ONCE PO Last administered on 04/07/22at 11:01; Start 04/07/22 at 10:45; Stop 04/07/22 at 10:46; Status DC Ondansetron HCl (Zofran) 4 mg PRN Q8HRS PRN IVP NAUSEA/VOMITING; Start 04/07/22 at 11:45; Stop 04/08/22 at 11:44; Status DC Meclizine HCl (Antivert) 12.5 mg TID PO Last administered on 04/08/22at 08:37; Start 04/07/22 at 14:00 Aspirin (Ecotrin) 81 mg DAILYWBKFT PO Last administered on 04/08/22at 08:37; Start 04/08/22 at 08:00 Potassium Chloride (Klor-Con) 40 meq 1X ONCE PO Last administered on 04/07/22at 21:52; Start 04/07/22 at 18:15; Stop 04/07/22 at 18:47; Status DC Amlodipine Besylate (Norvasc) 10 mg DAILY PO Last administered on 04/08/22at 08:38; Start 04/08/22 at 09:00 Aspirin (Ecotrin) 81 mg DAILY PO ; Start 04/08/22 at 09:00; Status UNV Lisinopril (Prinivil) 40 mg HS PO Last administered on 04/07/22at 21:51; Start 04/07/22 at 22:00 Non-Formulary Medication (Ibandronate Sodium (Boniva)) 150 mg MONTHLY PO ; Start 04/07/22 at 21:45; Status UNV Atorvastatin Calcium (Lipitor) 80 mg QHS PO Last administered on 04/07/22at 21:50; Start 04/07/22 at 22:00 Active Scripts Active Reported Boniva (Ibandronate Sodium) 150 Mg Tablet 150 Mg PO MONTHLY Enalapril Maleate 20 Mg Tablet 2 Tab PO HS Crestor (Rosuvastatin Calcium) 40 Mg Tablet 40 Mg PO HS Amlodipine Besylate 10 Mg Tablet 10 Mg PO DAILY Aspir 81 (Aspirin) 81 Mg Tablet.dr 81 Mg PO DAILY Vitals/I & O Vital Sign - Last 24 Hours 04/07/22 04/07/22 04/07/22 04/07/22 14:32 15:02 15:15 15:45 Temp 97.5 97.5 Pulse 64 70 79 Resp 48 30 19 B/P (MAP) 181/83 (115) 191/84 (119) 129/75 (93) Pulse Ox 100 100 99 O2 Delivery Room Air Room Air Room Air Room Air 04/07/22 04/07/22 04/07/22 04/07/22 19:00 20:00 20:00 20:00 Temp 98.1 98.1 Pulse 65 85 78 72 Resp 18 B/P (MAP) 172/74 (106) 170/89 (116) 163/77 (105) 184/79 (114) Pulse Ox 100 04/07/22 04/07/22 04/07/22 04/08/22 20:11 21:51 23:00 03:00 Temp 98.0 98.2 98.0 98.2 Pulse 85 71 69 Resp 16 16 B/P (MAP) 170/89 150/79 (102) 145/65 (91) Pulse Ox 97 98 O2 Delivery Room Air 04/08/22 04/08/22 04/08/22 04/08/22 07:00 08:00 08:38 11:00 Temp 98.0 98.2 98.0 98.2 Pulse 61 61 66 Resp 18 18 B/P (MAP) 147/69 (95) 147/69 155/72 (99) Pulse Ox 96 100 O2 Delivery Room Air Room Air Room Air Intake and Output 04/07/22 04/07/22 04/08/22 15:00 23:00 07:00 Intake Total 360 ml 60 ml Balance 360 ml 60 ml Justicifation of Admission Dx: Justifications for Admission: Justification of Admission Dx: N/A MALOU DEMPSEY MD April 08, 2022 14:10
[2022-04-08] MEDS ORDERED: MECLIZINE HCL 12.5 MG TABLET. PO PRN (14:15)
[2022-04-08 15:00] VITALS: BP 150/70
[2022-04-08 19:00] VITALS: BP 157/70
[2022-04-08] MEDS: ATORVASTATIN CALCIUM 40 MG TABLET. PO SCH (20:35)
[2022-04-08] MEDS: LISINOPRIL 20 MG TABLET PO SCH (20:35)
[2022-04-08 23:00] VITALS: BP 148/69
[2022-04-09 03:17] VITALS: BP 149/72
[2022-04-09 05:27] LABS: ALBUMIN 2.8 g/dL (3.4-5.0); ALBUMIN/GLOBULIN RATIO 0.8 (1.0-1.7); CALCIUM 9.3 mg/dL (8.5-10.1); CREATININE 1.5 mg/dL (0.6-1.0); GFR 40.2; POTASSIUM 4.3 mmol/L (3.5-5.1); TOTAL BILIRUBIN 0.5 mg/dL (0.2-1.0); TOTAL PROTEIN 6.3 g/dL (6.4-8.2)
[2022-04-09 07:00] VITALS: BP 128/60
[2022-04-09] MEDS: ASPIRIN ENTERIC COATED 81 MG TABLET.DR. PO SCH (08:29)
--- NOTE | 2022-04-09 08:56 | EKG ---
[facility] [address] [place] [address] Test Date: 2022-04-07 Test Time: 09:07:06 Pat Name: JANNETTE RODRIGUEZ Department: Room: [facility] Gender: F [employer]: : 1940 Requested By: PAUL GARY Order Number: [id number] Reading MD: Frank Chawla MD Measurements Intervals [place] Rate: 66 P: 64 GA: 158 QRS: -4 QRSD: 132 T: 106 QT: 446 QTc: 469 Interpretive Statements SINUS RHYTHM LBBB Electronically Signed On 04-09-2022 11:04:35 CDT by Frank Chawla MD
[2022-04-09 10:00] VITALS: BP 144/67
[2022-04-09 10:02] VITALS: BP 100/58
--- NOTE | 2022-04-09 10:54 | PDOC2 ---
ROSITA MCDANIEL SISTER SUPERIOR 04/09/22 1054: CARDIAC CONSULT DATE OF CONSULT Date of Consult DATE: 04/09/22 TIME: 10:45 REASON FOR CONSULT Reason for Consult: Dizziness REFERRING PHYSICIAN Referring Physician: Dr. Couch SOURCE Source: Chart review, Patient HISTORY OF PRESENT ILLNESS HISTORY OF PRESENT ILLNESS This is an 81-year-old female who presented secondary to dizziness. Patient reports she woke up Friday morning about 3 AM as she had to use the bathroom. She sat up in bed and became very dizzy and the room was spinning. Reports she laid back down due to dizziness. She was able to eventually get up and use the restroom and continued throughout her usual morning routine. Patient continued to feel intermittently dizzy lightheaded so she came into the ED for further evaluation and treatment. She denies any fall or loss of consciousness. Patient has a history of syncope, etiology unclear. She had prolonged monitoring with loop recorder that did not reveal any significant cardiac arrhythmias. Device was explanted due to battery depletion. Patient had recurrent syncopal episode last week when she was at the [facility]. She denies any precipitating dizziness lightheadedness. Event monitor was placed at that time, which she has on currently. She denies any chest pain, palpitations, diaphoresis, shortness of breath, or nausea vomiting. PAST MEDICAL HISTORY Cardiovascular: HTN, Hyperlipidemia, Other (syncope ) GI: GERD Heme/Onc: Anemia NOS, Cancer (breast) Psych: Depression PAST SURGICAL HISTORY Past Surgical History: Cataract Removal, Tonsillectomy, Hysterectomy, Other (loop recorder implant- s/p explantation ) FAMILY HISTORY Family History: Cancer SOCIAL HISTORY Smoke: No ALCOHOL: none Drugs: None Lives: Alone ALLERGIES ALLERGIES: Coded Allergies: codeine (Verified Allergy, Intermediate, SEE COMMENT, 04/07/22) TOLERATES HYDROCODONE/APAP Penicillins (Verified Adverse Reaction, Mild, N/V, 04/07/22) ROS Review of System 14 point ROS conducted with pertinent positives noted above in HPI. PHYSICAL EXAM General: Alert, Oriented X3, Cooperative, No acute distress HEENT: Atraumatic, Mucous membr. moist/pink Lungs: Clear to auscultation Heart: Regular rate Abdomen: Soft, No tenderness Extremities: No edema, Normal pulses Skin: No significant lesion Neuro: Normal speech, Sensation intact Psych/Mental Status: Mental status NL, Mood NL MUSCULOSKELETAL: Osteoarthritic changes both hands VITALS/I&O VITALS/I&O: Vital Signs Date Time Temp Pulse Resp B/P (MAP) Pulse Ox O2 Delivery O2 Flow Rate FiO2 04/09/22 08:30 61 128/60 04/09/22 07:00 98.1 18 96 Room Air 98.1 I & O 04/08/22 04/08/22 04/09/22 15:00 23:00 07:00 Intake Total 300 ml 300 ml Output Total 0 ml Balance 300 ml 300 ml 0 ml LABS Lab: Laboratory Tests Test 04/09/22 03:55 Sodium Level 146 mmol/L (136-145) H Potassium Level 4.3 mmol/L (3.5-5.1) Chloride Level 115 mmol/L (98-107) H Carbon Dioxide Level 19 mmol/L (21-32) L Anion Gap 12 (6-14) Blood Urea Nitrogen 23 mg/dL (7-20) H Creatinine 1.5 mg/dL (0.6-1.0) H Estimated GFR (Cockcroft-Gault) 40.2 BUN/Creatinine Ratio 15 (6-20) Glucose Level 93 mg/dL (70-99) Calcium Level 9.3 mg/dL (8.5-10.1) Total Bilirubin 0.5 mg/dL (0.2-1.0) Aspartate Amino Transferase (AST) 12 U/L (15-37) L Alanine Aminotransferase (ALT) 11 U/L (14-59) L Alkaline Phosphatase 67 U/L (46-116) Total Protein 6.3 g/dL (6.4-8.2) L Albumin 2.8 g/dL (3.4-5.0) L Albumin/Globulin Ratio 0.8 (1.0-1.7) L Laboratory Tests 04/09/22 03:55 ECHOCARDIOGRAM ECHOCARDIOGRAM <Conclusion> The left ventricular systolic function is normal and the ejection fraction is within normal range. Estimated ejection fraction 60-65%. There is normal LV segmental wall motion. DATE: 11/06/21 [id number] HEART CATH HEART CATH FINDINGS 1. Hemodynamics: Left ventricular end-diastolic pressure of 13 mmHg. No pullback gradient across the aortic valve. 2. Left ventriculography: Normal left ventricle systolic function with ejection fraction estimated at 60%. No significant mitral regurgitation seen. 3. Coronary angiography: a. The left main coronary artery arose from the left sinus of Valsalva, gave rise to the left anterior descending and left circumflex arteries and did not show any significant stenosis. b. The left anterior descending artery did not show any significant stenosis. c. The left circumflex artery was a large and dominant vessel that did not show any significant stenosis. d. The right coronary artery was a small and non-dominant vessel arising from the right sinus of Valsalva that did not show any significant stenosis. Conclusion 1. No significant coronary artery disease 2. Normal left ventricle systolic function with ejection fraction estimated at 60% Recommendations Chest pain noncardiac and most probably gastroesophageal reflux disease DATE: 11/13/18 0910 ASSESSMENT/PLAN ASSESSMENT/PLAN 1. Dizziness, vertigo; No acute events noted on telemetry. Occurs with or without position change 2. Orthostatic hypotension; IV fluids initiate. Encouraged adequate hydration 3. H/o syncope; Prolonged monitoring with loop recorder few years ago did not reveal any significant cardiac arrhythmias. Device explanted due to battery depletion. Patient currently has event monitor on- will follow up on outpatient basis following completion. 4. Hypertensive urgency; now low end 5. Hyperlipidemia 6. SCARLETT; s/p IVFs 7. Hypokalemia; replaced VALDO RAMACHANDRAN MD 04/10/22 0548: CARDIAC CONSULT ASSESSMENT/PLAN ASSESSMENT/PLAN Patient seen and examined 04/09/22. Agree with HEMODIALYSIS TECHNICIAN's assessment and plan ROSITA MCDANIEL APRN April 09, 2022 10:54 VALDO RAMACHANDRAN MD Apr 10, 2022 05:48
[2022-04-09] MEDS ORDERED: IV DEXTROSE 5% 1,000 ML IV SCH (11:00)
--- NOTE | 2022-04-09 11:13 | PN ---
DATE: 04/09/2022 SUBJECTIVE: The patient continued to have complaint of dizziness and she did have marked postural hypotension according to the physical therapist. She also had peripheral vestibular dysfunction. However, her lab work showed that her sodium is up to 146 and creatinine is also going up at 1.5. PHYSICAL EXAMINATION: GENERAL: When I examined her, she was pale, not jaundiced or cyanosed. No thyromegaly. No jugular venous distention. No lower limb edema. VITAL SIGNS: Her heart rate was 61, blood pressure was 128/60, temperature was 98, respiratory rate was 18 and oxygen saturation was 96%. HEAD, EYES, EARS, NOSE AND THROAT: Normocephalic, atraumatic. NECK: Supple. HEART: Showed normal first and second heart sounds. No gallop or murmur. CHEST: Clear to auscultation, no crepitation or rhonchi. ABDOMEN: Distended, soft, nontender, no guarding or rigidity. No organomegaly. All hernial orifices are intact. Bowel sounds are normal. NEUROLOGIC: She was grossly intact. Her intake and output are incompletely recorded. LABORATORY DATA: This morning showed serum sodium of 146, potassium 4.3, chloride 115, bicarbonate 19. Her anion gap of 12, BUN 23, creatinine 1.5, estimated GFR was 40 mL per minute. Her glucose was 93, calcium was 9.3. Total bilirubin, AST, ALT, alkaline phosphatase were normal. Total protein 6.3, albumin 2.8. ASSESSMENT: This is an 81-year-old female patient who apparently continued to complain of being dizzy. She has marked postural hypotension with blood pressure lying 144/67, standing was 100/58. She is also somewhat dehydrated. Her sodium is up to 146 and creatinine is going up to 1.5. She has also high anion gap metabolic acidosis. PLAN: Start her on D5W and I will hold her lisinopril. We will repeat all her lab work tomorrow and decide the further management accordingly. CLOVER DR: Kathy TID: [id number]
[2022-04-09 15:00] VITALS: BP 135/55
--- NOTE | 2022-04-09 16:40 | NUR ---
SS following for discharge planning. SS reviewed pt chart and discussed with pt RN. Pt is from home and is currently on room air. PT/OT recommended home with home healthcare. SS will continue to follow for discharge planning.
[2022-04-09 19:00] VITALS: BP 180/83
[2022-04-09] MEDS: ATORVASTATIN CALCIUM 40 MG TABLET. PO SCH (20:23)
== END 2022-04-10 | disposition home health service (06) | DRG 305 ==
LOC: ER 08:24 → ED HOLD 11:38 → 5 NORTH 15:25 → OBSVTOIN 04-09 09:42
PROVIDERS: ADMIT Internal Medicine; ATTEND Internal Medicine
DX: I16.0 Hypertensive urgency (principal); N17.9 Acute kidney failure, unspecified; E87.0 Hyperosmolality and hypernatremia; E87.2 Acidosis; E78.00 Pure hypercholesterolemia, unspecified; E78.5 Hyperlipidemia, unspecified; E86.0 Dehydration; E87.6 Hypokalemia; I10 Essential (primary) hypertension; I95.1 Orthostatic hypotension; Z85.3 Personal history of malignant neoplasm of breast; Z90.49 Acquired absence of other specified parts of digestive tract; Z90.710 Acquired absence of both cervix and uterus; D64.9 Anemia, unspecified; F32.A Depression, unspecified; K21.9 Gastro-esophageal reflux disease without esophagitis
CPT/HCPCS: 36415; 70450; 71045; 80048; 80053; 81001; 83880; 84443; 84484; 85025; 93005; G0378; G0379; J7060; 95992-GP; 97110-GO; 97116-GP; 97530-GO; J8597